=== PATIENT | male | born 1955 | race Two or more races ===

== ENCOUNTER 2021-06-10 10:38 | Inpatient (IN) | payer MEDICARE, OTHER ==
[~2021-06-10] VITALS: Ht 167.6 cm; Wt 144.4 kg
[2021-06-10] MEDS ORDERED: SODIUM CHLORIDE 0.9% 500 ML IV ONE (10:45)
[2021-06-10] MEDS ORDERED: CLINDAMYCIN 600MG IV 50 ML IV ONE (10:45)
[2021-06-10 12:10] LABS: Basophils # (auto) 0.2 10 ^3/uL (0-0.2); Basophils % (auto) 1.2 % (0.0-2.0); Eosinophils # (auto) 0.6 10 ^3/uL (0-0.8); Eosinophils % (auto) 3.2 % (0.0-7.0); Hematocrit 49.9 % (41.0-53.0); Hemoglobin 17.2 g/dL (13.5-17.5); Lymphocytes # (auto) 2.7 10 ^3/uL (0.4-5.4); Lymphocytes % (auto) 13.4 % (10.0-50.0); Mean Corpuscular Hemoglobin 30.6 pg (28.0-32.0); Mean Corpuscular Hgb Conc. 34.4 g/dL (32.0-36.0); Monocytes % (auto) 9.8 % (0.0-12.0); Neutrophils # (auto) 14.5 10 ^3/uL (1.6-8.6); Neutrophils % (auto) 72.4 % (37.0-80.0); Nucleated Red Blood Cells % 0.2 %; Red Blood Cells 5.61 10^6/uL (4.5-5.90); Red Cell Distribution Width 13.8 % (11.8-14.3); White Blood Cell 20.1 10^3/uL (4.4-10.8)
[2021-06-10 12:16] LABS: Albumin 3.4 g/dL (3.4-5.0); Calcium 8.9 mg/dL (8.5-10.1); Potassium 3.6 mmol/L (3.5-5.1)
[2021-06-10 12:20] LABS: BUN/Creatinine Ratio 21.7; Bilirubin, Total 0.6 mg/dL (0.2-1.0); Total Protein 7.6 g/dL (6.4-8.2)
[2021-06-10] MEDS ORDERED: MORPHINE SULFATE INJECTION 2 MG/ML SYRG IV PRN ×2 (13:15→14:00)
[2021-06-10] MEDS ORDERED: NITROGLYCERIN 0.4 MG SL TAB SL PRN ×2 (13:15→14:00)
[2021-06-10] MEDS ORDERED: METOPROLOL SUCCINATE XL 50 MG TAB PO ONE (14:00)
[2021-06-10] MEDS ORDERED: ALUM & MAG HYDROX-SIMETH LIQ(MAALOX) 30 ML PO PRN (14:00)
[2021-06-10] MEDS ORDERED: FUROSEMIDE 100 MG/10ML VIAL IV ONE (14:00)
[2021-06-10] MEDS ORDERED: ENOXAPARIN SOD 40 MG/0.4 ML SYRINGE SC ONE (14:00)
[2021-06-10] MEDS ORDERED: METOCLOPRAMIDE HCL 5MG/ml INJ 2ml VIAL IV PRN (14:00)
[2021-06-10] MEDS ORDERED: CEFTRIAXONE SODIUM 2 GM in D5W 5% 50 ML IV ONE (14:00)
[2021-06-10] MEDS ORDERED: ACETAMINOPHEN 325 MG TAB PO PRN (14:00)
[2021-06-10] MEDS ORDERED: LORazepam 0.5 MG TAB PO PRN (14:00)
[2021-06-10] MEDS ORDERED: CLINDAMYCIN 900MG IV 50 ML IV ONE (14:00)
[2021-06-10] MEDS ORDERED: DOCUSATE SOD 100 MG CAP PO PRN (14:00)
[2021-06-10 17:20] LABS: Cholesterol 175 mg/dL (< 200); HDL Cholesterol 36 mg/dL (40-59); LDL Cholesterol 129 mg/dL (< 100); Triglycerides 137 mg/dL (< 150)
[2021-06-10] MEDS: GABAPENTIN 300 MG CAP PO SCH (22:00)
[2021-06-11] MEDS: GABAPENTIN 300 MG CAP PO SCH ×4 (00:23→21:59)
[2021-06-11] MEDS: ATORVASTATIN 20 MG TAB PO SCH ×2 (00:24→21:59)
[2021-06-11] MEDS: CLINDAMYCIN 900MG IV 50 ML IV SCH ×4 (00:58→22:00)
[2021-06-11] MEDS: POTASSIUM CHL 20 Meq TABLET PO SCH ×3 (00:58→21:59)
[2021-06-11] MEDS: MORPHINE SULFATE INJECTION 2 MG/ML SYRG IV PRN (01:16)
[2021-06-11] MEDS: HYDROcodone-ACET 5/325MG TAB PO PRN ×2 (01:16→10:38)
[2021-06-11] MEDS: FUROSEMIDE 40 MG/4 ML VIAL IV SCH ×2 (03:04→14:09)
[2021-06-11 05:14] LABS: Basophils # (auto) 0.1 10 ^3/uL (0-0.2); Basophils % (auto) 0.8 % (0.0-2.0); Eosinophils # (auto) 0.2 10 ^3/uL (0-0.8); Eosinophils % (auto) 0.9 % (0.0-7.0); Hematocrit 49.5 % (41.0-53.0); Hemoglobin 16.9 g/dL (13.5-17.5); Lymphocytes # (auto) 1.5 10 ^3/uL (0.4-5.4); Lymphocytes % (auto) 7.6 % (10.0-50.0); Mean Corpuscular Hemoglobin 29.9 pg (28.0-32.0); Mean Corpuscular Hgb Conc. 34.2 g/dL (32.0-36.0); Mean Corpuscular Volume 87.4 fL (80.0-100.0); Monocytes # (auto) 2.2 10 ^3/uL (0-1.3); Monocytes % (auto) 11.4 % (0.0-12.0); Neutrophils # (auto) 15.2 10 ^3/uL (1.6-8.6); Neutrophils % (auto) 79.3 % (37.0-80.0); Nucleated Red Blood Cells % 0.1 %; Red Blood Cells 5.66 10^6/uL (4.5-5.90); Red Cell Distribution Width 13.3 % (11.8-14.3); White Blood Cell 19.2 10^3/uL (4.4-10.8)
[2021-06-11 05:28] LABS: Potassium 3.2 mmol/L (3.5-5.1)
[2021-06-11 05:35] LABS: Albumin 3.3 g/dL (3.4-5.0); BUN/Creatinine Ratio 17.2; Calcium 8.6 mg/dL (8.5-10.1); Phosphorus 2.9 mg/dL (2.5-4.90); Total Protein 7.5 g/dL (6.4-8.2); Uric Acid 7.2 mg/dL (3.5-7.2)
[2021-06-11 05:41] LABS: INR 1.1 (0.9-1.15); Partial Thromboplastin Time 28.2 sec (23.6-33.0)
[2021-06-11] MEDS: ENOXAPARIN SOD 40 MG/0.4 ML SYRINGE SC SCH (10:15)
[2021-06-11] MEDS: CYANOCOBALAMIN 500 MCG TAB PO SCH (10:16)
[2021-06-11] MEDS: METOPROLOL SUCCINATE XL 50 MG TAB PO SCH (10:27)
[2021-06-11] MEDS: LOSARTAN POTASSIUM 25 MG TAB PO SCH (10:28)
[2021-06-11] MEDS: ASPirin 81 mg TAB PO SCH (10:29)
[2021-06-11] MEDS: CEFTRIAXONE SODIUM 2 GM in D5W 5% 50 ML IV SCH (10:29)
[2021-06-11] MEDS: ALLOPURINOL 100 MG TAB PO SCH (10:30)
[2021-06-11] MEDS ORDERED: POTASSIUM CHLORIDE 40 MEQ, LIDOCAINE 1% (LOCAL ANESTH.) 4 ML in SODIUM CHL 0.9% 250 ML IV ONE (13:15)
[2021-06-11 18:22] VITALS: BP 150/93
[2021-06-11 21:58] VITALS: BP 152/84
[2021-06-12] MEDS: FUROSEMIDE 40 MG/4 ML VIAL IV SCH ×2 (02:27→13:49)
[2021-06-12 05:06] VITALS: BP 101/68
[2021-06-12] MEDS: GABAPENTIN 300 MG CAP PO SCH ×3 (05:31→22:43)
[2021-06-12] MEDS: CLINDAMYCIN 900MG IV 50 ML IV SCH ×3 (05:31→22:42)
[2021-06-12 05:52] LABS: Basophils # (auto) 0.2 10 ^3/uL (0-0.2); Basophils % (auto) 1.5 % (0.0-2.0); Eosinophils # (auto) 0.5 10 ^3/uL (0-0.8); Eosinophils % (auto) 3.1 % (0.0-7.0); Hematocrit 48.2 % (41.0-53.0); Lymphocytes # (auto) 2.5 10 ^3/uL (0.4-5.4); Lymphocytes % (auto) 15.1 % (10.0-50.0); Mean Corpuscular Hgb Conc. 33.2 g/dL (32.0-36.0); Mean Corpuscular Volume 90.1 fL (80.0-100.0); Monocytes # (auto) 2.1 10 ^3/uL (0-1.3); Monocytes % (auto) 13.1 % (0.0-12.0); Neutrophils % (auto) 67.2 % (37.0-80.0); Nucleated Red Blood Cells % 0.1 %; Red Blood Cells 5.35 10^6/uL (4.5-5.90); Red Cell Distribution Width 13.8 % (11.8-14.3); White Blood Cell 16.3 10^3/uL (4.4-10.8)
[2021-06-12 06:13] LABS: Albumin 2.9 g/dL (3.4-5.0); BUN/Creatinine Ratio 26.9; Calcium 8.3 mg/dL (8.5-10.1); Magnesium 2.3 mg/dL (1.6-2.6)
[2021-06-12 06:16] LABS: Bilirubin, Total 0.8 mg/dL (0.2-1.0); Phosphorus 3.3 mg/dL (2.5-4.90); Total Protein 6.4 g/dL (6.4-8.2)
[2021-06-12 06:20] LABS: INR 2.07 (0.9-1.15); Partial Thromboplastin Time 47.3 sec (23.6-33.0)
[2021-06-12 08:00] VITALS: BP 112/62
[2021-06-12] MEDS: CEFTRIAXONE SODIUM 2 GM in D5W 5% 50 ML IV SCH (08:50)
[2021-06-12] MEDS: ASPirin 81 mg TAB PO SCH (08:50)
[2021-06-12] MEDS: LOSARTAN POTASSIUM 25 MG TAB PO SCH (08:50)
[2021-06-12] MEDS: METOPROLOL SUCCINATE XL 50 MG TAB PO SCH (08:51)
[2021-06-12] MEDS: POTASSIUM CHL 20 Meq TABLET PO SCH ×2 (08:51→22:42)
[2021-06-12] MEDS: CYANOCOBALAMIN 500 MCG TAB PO SCH (08:52)
[2021-06-12] MEDS: CHOLECALCIFEROL (VITD3) 2,000 UNIT CAP/TAB PO SCH (08:52)
[2021-06-12] MEDS: ALLOPURINOL 100 MG TAB PO SCH (08:53)
[2021-06-12] MEDS: ENOXAPARIN SOD 40 MG/0.4 ML SYRINGE SC SCH (08:53)
[2021-06-12] MEDS: MORPHINE SULFATE INJECTION 2 MG/ML SYRG IV PRN ×2 (08:54→13:50)
[2021-06-12] MEDS: HYDROcodone-ACET 5/325MG TAB PO PRN ×2 (10:29→22:43)
[2021-06-12 12:00] VITALS: BP 158/111
[2021-06-12 16:00] VITALS: BP 138/74
[2021-06-12 22:02] VITALS: BP 138/78
[2021-06-12] MEDS: ATORVASTATIN 20 MG TAB PO SCH (22:42)
[2021-06-13] MEDS: FUROSEMIDE 40 MG/4 ML VIAL IV SCH ×2 (03:29→14:07)
[2021-06-13 04:50] VITALS: BP 158/84
[2021-06-13] MEDS: CLINDAMYCIN 900MG IV 50 ML IV SCH ×3 (05:46→21:21)
[2021-06-13] MEDS: GABAPENTIN 300 MG CAP PO SCH ×3 (05:47→21:22)
[2021-06-13 05:55] LABS: Basophils # (auto) 0.1 10 ^3/uL (0-0.2); Basophils % (auto) 0.9 % (0.0-2.0); Eosinophils # (auto) 0.5 10 ^3/uL (0-0.8); Eosinophils % (auto) 3.4 % (0.0-7.0); Hematocrit 43.7 % (41.0-53.0); Hemoglobin 15.3 g/dL (13.5-17.5); Lymphocytes % (auto) 12.9 % (10.0-50.0); Mean Corpuscular Hemoglobin 30.9 pg (28.0-32.0); Mean Corpuscular Volume 88.3 fL (80.0-100.0); Monocytes # (auto) 1.9 10 ^3/uL (0-1.3); Monocytes % (auto) 12.6 % (0.0-12.0); Neutrophils # (auto) 10.6 10 ^3/uL (1.6-8.6); Neutrophils % (auto) 70.2 % (37.0-80.0); Nucleated Red Blood Cells % 0.1 %; Red Blood Cells 4.95 10^6/uL (4.5-5.90); Red Cell Distribution Width 13.6 % (11.8-14.3); White Blood Cell 15.1 10^3/uL (4.4-10.8)
[2021-06-13 06:11] LABS: INR 1.07 (0.9-1.15); Partial Thromboplastin Time 28.9 sec (23.6-33.0)
[2021-06-13 06:23] LABS: Calcium 8.3 mg/dL (8.5-10.1); Potassium 3.6 mmol/L (3.5-5.1)
[2021-06-13 06:25] LABS: BUN/Creatinine Ratio 27.8; Magnesium 2.3 mg/dL (1.6-2.6)
[2021-06-13 06:28] LABS: Bilirubin, Total 0.7 mg/dL (0.2-1.0); Total Protein 6.3 g/dL (6.4-8.2)
[2021-06-13 08:00] VITALS: BP 134/80
[2021-06-13] MEDS: CHOLECALCIFEROL (VITD3) 2,000 UNIT CAP/TAB PO SCH (10:05)
[2021-06-13] MEDS: CEFTRIAXONE SODIUM 2 GM in D5W 5% 50 ML IV SCH (10:05)
[2021-06-13] MEDS: CYANOCOBALAMIN 500 MCG TAB PO SCH (10:06)
[2021-06-13] MEDS: ASPirin 81 mg TAB PO SCH (10:06)
[2021-06-13] MEDS: LOSARTAN POTASSIUM 25 MG TAB PO SCH (10:07)
[2021-06-13] MEDS: POTASSIUM CHL 20 Meq TABLET PO SCH ×2 (10:07→21:21)
[2021-06-13] MEDS: ENOXAPARIN SOD 40 MG/0.4 ML SYRINGE SC SCH (10:08)
[2021-06-13] MEDS: METOPROLOL SUCCINATE XL 50 MG TAB PO SCH (10:08)
[2021-06-13] MEDS: ALLOPURINOL 100 MG TAB PO SCH (10:08)
[2021-06-13] MEDS: MORPHINE SULFATE INJECTION 2 MG/ML SYRG IV PRN ×2 (10:09→21:02)
[2021-06-13 12:00] VITALS: BP 140/77
[2021-06-13 16:00] VITALS: BP_SYST 108; BP_SYST 147; BP_DIAS 68; BP_DIAS 81
[2021-06-13] MEDS: ATORVASTATIN 20 MG TAB PO SCH (21:21)
[2021-06-13 22:00] VITALS: BP 95/50
[2021-06-14] MEDS: HYDROcodone-ACET 5/325MG TAB PO PRN ×3 (01:26→21:26)
[2021-06-14] MEDS: FUROSEMIDE 40 MG/4 ML VIAL IV SCH ×2 (01:26→14:11)
[2021-06-14 05:00] VITALS: BP 134/85
[2021-06-14] MEDS: GABAPENTIN 300 MG CAP PO SCH ×3 (05:45→21:25)
[2021-06-14] MEDS: CLINDAMYCIN 900MG IV 50 ML IV SCH (05:45)
[2021-06-14 09:00] VITALS: BP 135/82
[2021-06-14] MEDS: ALLOPURINOL 100 MG TAB PO SCH (09:02)
[2021-06-14] MEDS: CYANOCOBALAMIN 500 MCG TAB PO SCH (09:02)
[2021-06-14] MEDS: CHOLECALCIFEROL (VITD3) 2,000 UNIT CAP/TAB PO SCH (09:02)
[2021-06-14] MEDS: ASPirin 81 mg TAB PO SCH (09:02)
[2021-06-14] MEDS: LOSARTAN POTASSIUM 25 MG TAB PO SCH (09:02)
[2021-06-14] MEDS: POTASSIUM CHL 20 Meq TABLET PO SCH ×2 (09:02→21:24)
[2021-06-14] MEDS: METOPROLOL SUCCINATE XL 50 MG TAB PO SCH (09:03)
[2021-06-14] MEDS: ENOXAPARIN SOD 40 MG/0.4 ML SYRINGE SC SCH (09:03)
[2021-06-14] MEDS: MORPHINE SULFATE INJECTION 2 MG/ML SYRG IV PRN ×2 (09:04→16:13)
[2021-06-14] MEDS: CEFTRIAXONE SODIUM 2 GM in D5W 5% 50 ML IV SCH (09:13)
[2021-06-14] MEDS ORDERED: VANCOMYCIN PER PHARMACY 0 MG IV SCH (10:15)
[2021-06-14] MEDS: VANCOMYCIN 1GM/250ML 250 ML IV SCH ×2 (11:35→21:24)
[2021-06-14 13:30] VITALS: BP 156/79
[2021-06-14 15:30] VITALS: BP 135/87
[2021-06-14] MEDS ORDERED: levoFLOXacin 750MG 150 ML IV ONE (15:30)
[2021-06-14] MEDS ORDERED: MORPHINE SULFATE INJECTION 2 MG/ML SYRG IV ONE (17:15)
[2021-06-14] MEDS: ATORVASTATIN 20 MG TAB PO SCH (21:25)
[2021-06-15 00:28] VITALS: BP 150/83
[2021-06-15] MEDS: FUROSEMIDE 40 MG/4 ML VIAL IV SCH ×2 (02:38→13:34)
[2021-06-15] MEDS: VANCOMYCIN 1GM/250ML 250 ML IV SCH ×3 (04:04→20:03)
[2021-06-15 05:00] VITALS: BP 137/72
[2021-06-15] MEDS: HYDROcodone-ACET 5/325MG TAB PO PRN (05:00)
[2021-06-15] MEDS: GABAPENTIN 300 MG CAP PO SCH ×3 (05:40→22:38)
[2021-06-15 07:50] LABS: Basophils # (auto) 0.1 10 ^3/uL (0-0.2); Basophils % (auto) 0.8 % (0.0-2.0); Eosinophils # (auto) 0.7 10 ^3/uL (0-0.8); Eosinophils % (auto) 5.1 % (0.0-7.0); Hematocrit 45.2 % (41.0-53.0); Hemoglobin 15.1 g/dL (13.5-17.5); Lymphocytes # (auto) 1.6 10 ^3/uL (0.4-5.4); Lymphocytes % (auto) 11.3 % (10.0-50.0); Mean Corpuscular Hemoglobin 29.5 pg (28.0-32.0); Mean Corpuscular Hgb Conc. 33.3 g/dL (32.0-36.0); Mean Corpuscular Volume 88.5 fL (80.0-100.0); Monocytes # (auto) 1.6 10 ^3/uL (0-1.3); Neutrophils # (auto) 10.3 10 ^3/uL (1.6-8.6); Neutrophils % (auto) 71.8 % (37.0-80.0); Red Cell Distribution Width 13.2 % (11.8-14.3); White Blood Cell 14.4 10^3/uL (4.4-10.8)
[2021-06-15 08:06] LABS: Calcium 8.5 mg/dL (8.5-10.1); Potassium 3.7 mmol/L (3.5-5.1)
[2021-06-15] MEDS: MORPHINE SULFATE INJECTION 2 MG/ML SYRG IV PRN ×2 (08:36→20:10)
[2021-06-15 09:00] VITALS: BP_SYST 114; BP_SYST 115; BP_DIAS 70; BP_DIAS 76
[2021-06-15] MEDS: ASPirin 81 mg TAB PO SCH (10:06)
[2021-06-15] MEDS: ENOXAPARIN SOD 40 MG/0.4 ML SYRINGE SC SCH (10:06)
[2021-06-15] MEDS: METOPROLOL SUCCINATE XL 50 MG TAB PO SCH (10:06)
[2021-06-15] MEDS: CHOLECALCIFEROL (VITD3) 2,000 UNIT CAP/TAB PO SCH (10:07)
[2021-06-15] MEDS: CYANOCOBALAMIN 500 MCG TAB PO SCH (10:07)
[2021-06-15] MEDS: ALLOPURINOL 100 MG TAB PO SCH (10:07)
[2021-06-15] MEDS: POTASSIUM CHL 20 Meq TABLET PO SCH (10:07)
[2021-06-15] MEDS: LOSARTAN POTASSIUM 25 MG TAB PO SCH (10:07)
[2021-06-15] MEDS: levoFLOXacin 750MG 150 ML IV SCH (10:08)
[2021-06-15 13:00] VITALS: BP 138/73
[2021-06-15 16:55] VITALS: BP 120/67
[2021-06-15 22:00] VITALS: BP 136/71
[2021-06-15] MEDS: ATORVASTATIN 20 MG TAB PO SCH (22:38)
[2021-06-16] MEDS: FUROSEMIDE 40 MG/4 ML VIAL IV SCH (02:15)
[2021-06-16] MEDS: VANCOMYCIN 1GM/250ML 250 ML IV SCH (04:00)
[2021-06-16 05:00] VITALS: BP 115/67
[2021-06-16] MEDS: MORPHINE SULFATE INJECTION 2 MG/ML SYRG IV PRN (05:50)
[2021-06-16] MEDS: GABAPENTIN 300 MG CAP PO SCH (06:00)
[2021-06-16 08:56] VITALS: BP 149/75
[2021-06-16] MEDS: ASPirin 81 mg TAB PO SCH (11:09)
[2021-06-16] MEDS: levoFLOXacin 750MG 150 ML IV SCH (11:09)
[2021-06-16] MEDS: LOSARTAN POTASSIUM 25 MG TAB PO SCH (11:10)
[2021-06-16] MEDS: CYANOCOBALAMIN 500 MCG TAB PO SCH (11:11)
[2021-06-16] MEDS: METOPROLOL SUCCINATE XL 50 MG TAB PO SCH (11:11)
[2021-06-16] MEDS: ALLOPURINOL 100 MG TAB PO SCH (11:12)
[2021-06-16] MEDS: CHOLECALCIFEROL (VITD3) 2,000 UNIT CAP/TAB PO SCH (11:12)
[2021-06-16] MEDS: ENOXAPARIN SOD 40 MG/0.4 ML SYRINGE SC SCH (11:12)
[2021-06-16] MEDS: HYDROcodone-ACET 5/325MG TAB PO PRN (11:16)
[2021-06-16 12:14] VITALS: BP 149/75
[2021-06-16 12:34] VITALS: BP 150/90
== END 2021-06-16 13:20 | disposition home health service (06) | DRG 602 ==
LOC: ER 10:38 → TELE 13:05 → TELE-WESTW 06-11 17:33 → WEST WING 06-12 14:07
PROVIDERS: ADMIT Hospitalist; ATTEND Family Medicine
DX: L03.115 Cellulitis of right lower limb (principal); I50.33 Acute on chronic diastolic (congestive) heart failure; L97.809 Non-pressure chronic ulcer of other part of unspecified lower leg with unspecified severity; L97.929 Non-pressure chronic ulcer of unspecified part of left lower leg with unspecified severity; Z68.43 Body mass index [BMI] 50.0-59.9, adult; L97.919 Non-pressure chronic ulcer of unspecified part of right lower leg with unspecified severity; L03.116 Cellulitis of left lower limb; I87.8 Other specified disorders of veins; E66.01 Morbid (severe) obesity due to excess calories; M10.9 Gout, unspecified; G62.9 Polyneuropathy, unspecified; L30.9 Dermatitis, unspecified; I87.2 Venous insufficiency (chronic) (peripheral); E78.5 Hyperlipidemia, unspecified; I11.0 Hypertensive heart disease with heart failure; E78.00 Pure hypercholesterolemia, unspecified; Z80.9 Family history of malignant neoplasm, unspecified; Z82.3 Family history of stroke; Z82.49 Family history of ischemic heart disease and other diseases of the circulatory system
CPT/HCPCS: 36415; 80048; 80053; 80061; 80202; 82306; 83036; 83735; 83880; 84100; 84443; 84484; 84550; 85025; 85610; 85652; 85730; 87040; 87077; 87186; 87205; 87426; 93306; 93925; 93970; 96372; 96374; G0378; J0696; J1956; J2001; J3490; J7060

== ENCOUNTER 2022-10-17 11:04 | Inpatient (IN) | payer MEDICARE, OTHER ==
[~2022-10-17] VITALS: Ht 170.2 cm; Wt 142.1 kg
[2022-10-17 12:28] LABS: Basophils # (auto) 0.1 10 ^3/uL (0-0.2); Basophils % (auto) 1.1 % (0.0-2.0); Eosinophils # (auto) 0.6 10 ^3/uL (0-0.8); Eosinophils % (auto) 4.2 % (0.0-7.0); Hematocrit 41.4 % (41.0-53.0); Hemoglobin 14.1 g/dL (13.5-17.5); Mean Corpuscular Hemoglobin 29.2 pg (28.0-32.0); Mean Corpuscular Hgb Conc. 34.1 g/dL (32.0-36.0); Mean Corpuscular Volume 85.7 fL (80.0-100.0); Monocytes # (auto) 1.4 10 ^3/uL (0-1.3); Monocytes % (auto) 10.5 % (0.0-12.0); Neutrophils # (auto) 9.2 10 ^3/uL (1.6-8.6); Neutrophils % (auto) 69.2 % (37.0-80.0); Nucleated Red Blood Cells % 0.1 %; Red Blood Cells 4.83 10^6/uL (4.5-5.90); Red Cell Distribution Width 13.7 % (11.8-14.3); White Blood Cell 13.3 10^3/uL (4.4-10.8)
[2022-10-17 12:58] LABS: Albumin 3.2 g/dL (3.4-5.0); CRP High Sensitivity 1.98 mg/dL (< 0.3); Calcium 8.6 mg/dL (8.5-10.1); Potassium 3.3 mmol/L (3.5-5.1); Total Protein 6.6 g/dL (6.4-8.2)
[2022-10-17] MEDS ORDERED: VANCOMYCIN 1GM/250ML 250 ML IV ONE (16:45)
[2022-10-17] MEDS ORDERED: POTASSIUM CHL 20 Meq TABLET PO ONE (21:00)
[2022-10-17] MEDS ORDERED: HYDROcodone-ACET 5/325MG TAB PO PRN (21:00)
[2022-10-17] MEDS ORDERED: ACETAMINOPHEN 325 MG TAB PO PRN (21:00)
[2022-10-17] MEDS ORDERED: ONDANSETRON HCL 4 MG/2 ML VIAL IV PRN (21:00)
[2022-10-17 21:47] LABS: INR 1.07 (0.9-1.15); Partial Thromboplastin Time 28.2 sec (24.6-33.4)
[2022-10-17] MEDS ORDERED: TEMAZEPAM 15 MG CAP PO PRN (22:00)
[2022-10-17] MEDS: cefTRIAXone 1GM/50ML D5W 50 ML IV SCH (23:24)
[2022-10-17] MEDS: ATORVASTATIN 20 MG TAB PO SCH (23:24)
[2022-10-17] MEDS: CARVEDILOL 3.125 MG TAB PO SCH (23:25)
[2022-10-18] VITALS (8 sets, daily range): BP systolic 120–162; BP diastolic 71–100
[2022-10-18] MEDS: CLINDAMYCIN 600MG IV 50 ML IV SCH ×2 (01:05→06:00)
[2022-10-18] MEDS ORDERED: ALL100T PO (04:52)
[2022-10-18] MEDS ORDERED: AZIL40TA2 PO (04:52)
[2022-10-18] MEDS ORDERED: CLON0.1T PO (04:52)
[2022-10-18] MEDS ORDERED: ATOR10TA52 PO (04:52)
[2022-10-18] MEDS ORDERED: CARV6.25 PO (04:52)
[2022-10-18 07:54] LABS: Basophils # (auto) 0.2 10 ^3/uL (0-0.2); Basophils % (auto) 1.2 % (0.0-2.0); Eosinophils # (auto) 0.5 10 ^3/uL (0-0.8); Eosinophils % (auto) 3.5 % (0.0-7.0); Hematocrit 39.5 % (41.0-53.0); Hemoglobin 13.3 g/dL (13.5-17.5); Lymphocytes # (auto) 2.1 10 ^3/uL (0.4-5.4); Lymphocytes % (auto) 15.1 % (10.0-50.0); Mean Corpuscular Hgb Conc. 33.7 g/dL (32.0-36.0); Mean Corpuscular Volume 86.1 fL (80.0-100.0); Monocytes # (auto) 1.7 10 ^3/uL (0-1.3); Monocytes % (auto) 12.2 % (0.0-12.0); Neutrophils # (auto) 9.4 10 ^3/uL (1.6-8.6); Red Blood Cells 4.59 10^6/uL (4.5-5.90); Red Cell Distribution Width 13.7 % (11.8-14.3); White Blood Cell 13.8 10^3/uL (4.4-10.8)
[2022-10-18 08:15] LABS: Albumin 2.8 g/dL (3.4-5.0); BUN/Creatinine Ratio 13.6; Bilirubin, Total 1.1 mg/dL (0.2-1.0); Calcium 8.3 mg/dL (8.5-10.1); Potassium 3.2 mmol/L (3.5-5.1); Total Protein 6.7 g/dL (6.4-8.2)
[2022-10-18] MEDS: cefTRIAXone 1GM/50ML D5W 50 ML IV SCH (08:59)
[2022-10-18] MEDS: CARVEDILOL 3.125 MG TAB PO SCH ×2 (09:59→21:52)
[2022-10-18] MEDS: ALLOPURINOL 100 MG TAB PO SCH (09:59)
[2022-10-18] MEDS: PANTOPRAZOLE 40 MG TAB PO SCH (09:59)
[2022-10-18] MEDS ORDERED: FUROSEMIDE 40 MG TAB PO SCH (10:00)
[2022-10-18] MEDS ORDERED: FUROSEMIDE 20 MG/2 ML VIAL IV ONE (10:15)
[2022-10-18] MEDS ORDERED: POTASSIUM CHL 20 Meq TABLET PO ONE (10:15)
[2022-10-18 21:07] LABS: Urine Bacteria NONE SEEN /hpf (None Seen); Urine Blood Negative /uL (Negative); Urine Specific Gravity 1.019 (1.001-1.035); Urine WBC <1 /hpf (0 - 3)
[2022-10-18] MEDS: CLINDAMYCIN 300MG IV 100 ML IV SCH (21:44)
[2022-10-18] MEDS: ATORVASTATIN 20 MG TAB PO SCH (21:45)
[2022-10-19] VITALS (7 sets, daily range): BP systolic 129–148; BP diastolic 63–93
[2022-10-19] MEDS: CLINDAMYCIN 300MG IV 100 ML IV SCH ×3 (05:42→22:04)
[2022-10-19 08:28] LABS: Basophils # (auto) 0.1 10 ^3/uL (0-0.2); Basophils % (auto) 0.9 % (0.0-2.0); Eosinophils # (auto) 0.6 10 ^3/uL (0-0.8); Eosinophils % (auto) 4.6 % (0.0-7.0); Hematocrit 41.7 % (41.0-53.0); Hemoglobin 14.2 g/dL (13.5-17.5); Lymphocytes # (auto) 2.3 10 ^3/uL (0.4-5.4); Lymphocytes % (auto) 17.5 % (10.0-50.0); Mean Corpuscular Hemoglobin 29.1 pg (28.0-32.0); Mean Corpuscular Hgb Conc. 34.1 g/dL (32.0-36.0); Mean Corpuscular Volume 85.4 fL (80.0-100.0); Monocytes # (auto) 1.4 10 ^3/uL (0-1.3); Monocytes % (auto) 10.9 % (0.0-12.0); Neutrophils # (auto) 8.6 10 ^3/uL (1.6-8.6); Neutrophils % (auto) 66.1 % (37.0-80.0); Nucleated Red Blood Cells % 0.3 %; Red Blood Cells 4.88 10^6/uL (4.5-5.90); Red Cell Distribution Width 13.3 % (11.8-14.3)
[2022-10-19 08:42] LABS: Calcium 8.6 mg/dL (8.5-10.1); Potassium 3.2 mmol/L (3.5-5.1)
[2022-10-19] MEDS: cefTRIAXone 1GM/50ML D5W 50 ML IV SCH (09:35)
[2022-10-19] MEDS: CARVEDILOL 3.125 MG TAB PO SCH ×2 (09:36→22:09)
[2022-10-19] MEDS: POTASSIUM CHL 20 Meq TABLET PO SCH (09:37)
[2022-10-19] MEDS: PANTOPRAZOLE 40 MG TAB PO SCH (09:37)
[2022-10-19] MEDS: ALLOPURINOL 100 MG TAB PO SCH (09:37)
[2022-10-19] MEDS ORDERED: FUROSEMIDE 20 MG/2 ML VIAL IV SCH (10:00)
[2022-10-19] MEDS ORDERED: FUROSEMIDE 20 MG/2 ML VIAL IV ONE (10:15)
[2022-10-19] MEDS ORDERED: POTASSIUM CHL 20 Meq TABLET PO ONE (10:15)
[2022-10-19] MEDS ORDERED: CLINDAMYCIN 600MG IV 50 ML IV SCH (14:00)
[2022-10-19] MEDS: ATORVASTATIN 20 MG TAB PO SCH (22:05)
[2022-10-20 05:21] VITALS: BP 122/72
[2022-10-20 06:47] LABS: Potassium 3.3 mmol/L (3.5-5.1)
[2022-10-20 07:00] LABS: Basophils # (auto) 0.1 10 ^3/uL (0-0.2); Basophils % (auto) 0.7 % (0.0-2.0); Eosinophils # (auto) 0.6 10 ^3/uL (0-0.8); Eosinophils % (auto) 5.3 % (0.0-7.0); Hematocrit 47.6 % (41.0-53.0); Hemoglobin 16.1 g/dL (13.5-17.5); Lymphocytes # (auto) 2.3 10 ^3/uL (0.4-5.4); Lymphocytes % (auto) 20.5 % (10.0-50.0); Mean Corpuscular Hemoglobin 29.1 pg (28.0-32.0); Mean Corpuscular Hgb Conc. 33.8 g/dL (32.0-36.0); Mean Corpuscular Volume 85.9 fL (80.0-100.0); Monocytes # (auto) 1.3 10 ^3/uL (0-1.3); Monocytes % (auto) 11.9 % (0.0-12.0); Neutrophils % (auto) 61.6 % (37.0-80.0); Nucleated Red Blood Cells % 0.1 %; Red Blood Cells 5.55 10^6/uL (4.5-5.90); Red Cell Distribution Width 13.6 % (11.8-14.3); White Blood Cell 11.3 10^3/uL (4.4-10.8)
[2022-10-20] MEDS: CLINDAMYCIN 300MG IV 100 ML IV SCH ×3 (07:03→21:35)
[2022-10-20 07:07] LABS: BUN/Creatinine Ratio 14.6; Calcium 8.9 mg/dL (8.5-10.1)
[2022-10-20 09:00] VITALS: BP 144/49
[2022-10-20] MEDS: cefTRIAXone 1GM/50ML D5W 50 ML IV SCH (09:18)
[2022-10-20] MEDS ORDERED: POTASSIUM CHL 20 Meq TABLET PO ONE (10:00)
[2022-10-20] MEDS: POTASSIUM CHL 20 Meq TABLET PO SCH (10:00)
[2022-10-20] MEDS: PANTOPRAZOLE 40 MG TAB PO SCH (11:18)
[2022-10-20] MEDS: ALLOPURINOL 100 MG TAB PO SCH (11:18)
[2022-10-20] MEDS: CARVEDILOL 3.125 MG TAB PO SCH ×2 (11:18→21:34)
[2022-10-20] MEDS: FUROSEMIDE 20 MG/2 ML VIAL IV SCH (11:22)
[2022-10-20 13:00] VITALS: BP_SYST 126; BP_SYST 139; BP_DIAS 79; BP_DIAS 85
[2022-10-20 17:00] VITALS: BP 147/78
[2022-10-20] MEDS: ATORVASTATIN 20 MG TAB PO SCH (21:34)
[2022-10-20 22:00] VITALS: BP 123/55
[2022-10-21 05:00] VITALS: BP 124/55
[2022-10-21] MEDS: CLINDAMYCIN 300MG IV 100 ML IV SCH ×3 (05:33→21:38)
[2022-10-21 06:15] LABS: Calcium 9.2 mg/dL (8.5-10.1); Potassium 3.1 mmol/L (3.5-5.1)
[2022-10-21 06:17] LABS: BUN/Creatinine Ratio 19.3
[2022-10-21 08:18] VITALS: BP 164/82
[2022-10-21] MEDS: cefTRIAXone 1GM/50ML D5W 50 ML IV SCH (08:50)
[2022-10-21] MEDS: FUROSEMIDE 20 MG/2 ML VIAL IV SCH (10:44)
[2022-10-21] MEDS: POTASSIUM CHL 20 Meq TABLET PO SCH (10:45)
[2022-10-21] MEDS: CARVEDILOL 3.125 MG TAB PO SCH ×2 (10:45→21:38)
[2022-10-21] MEDS: PANTOPRAZOLE 40 MG TAB PO SCH (10:46)
[2022-10-21] MEDS: ALLOPURINOL 100 MG TAB PO SCH (10:46)
[2022-10-21] MEDS ORDERED: POTASSIUM CHL 20 Meq TABLET PO ONE (11:15)
[2022-10-21 13:00] VITALS: BP 169/80
[2022-10-21 17:13] VITALS: BP 154/86
[2022-10-21] MEDS: ATORVASTATIN 20 MG TAB PO SCH (21:38)
[2022-10-21 22:00] VITALS: BP 149/92
[2022-10-22 05:00] VITALS: BP 155/85
[2022-10-22] MEDS: CLINDAMYCIN 300MG IV 100 ML IV SCH ×3 (05:28→21:27)
[2022-10-22 09:00] VITALS: BP 161/96
[2022-10-22] MEDS: cefTRIAXone 1GM/50ML D5W 50 ML IV SCH (09:29)
[2022-10-22] MEDS: CARVEDILOL 3.125 MG TAB PO SCH ×2 (10:44→21:27)
[2022-10-22] MEDS: FUROSEMIDE 20 MG/2 ML VIAL IV SCH (10:44)
[2022-10-22] MEDS: POTASSIUM CHL 20 Meq TABLET PO SCH (10:44)
[2022-10-22] MEDS: ALLOPURINOL 100 MG TAB PO SCH (10:45)
[2022-10-22] MEDS: PANTOPRAZOLE 40 MG TAB PO SCH (10:45)
[2022-10-22 13:00] VITALS: BP 150/95
[2022-10-22 17:00] VITALS: BP 162/75
[2022-10-22] MEDS ORDERED: hydrALAZINE HCL 20 MG/ML VL IV PRN (18:15)
[2022-10-22 20:00] VITALS: BP 126/58
[2022-10-22] MEDS: ATORVASTATIN 20 MG TAB PO SCH (21:27)
[2022-10-22 22:00] VITALS: BP 126/58
[2022-10-23 05:00] VITALS: BP 144/75
[2022-10-23] MEDS: CLINDAMYCIN 300MG IV 100 ML IV SCH ×2 (05:08→14:50)
[2022-10-23 08:54] VITALS: BP 104/72
[2022-10-23] MEDS: cefTRIAXone 1GM/50ML D5W 50 ML IV SCH (08:56)
[2022-10-23] MEDS: POTASSIUM CHL 20 Meq TABLET PO SCH (08:57)
[2022-10-23] MEDS: PANTOPRAZOLE 40 MG TAB PO SCH (08:57)
[2022-10-23] MEDS: FUROSEMIDE 20 MG/2 ML VIAL IV SCH (08:57)
[2022-10-23] MEDS: CARVEDILOL 3.125 MG TAB PO SCH (08:57)
[2022-10-23] MEDS: ALLOPURINOL 100 MG TAB PO SCH (08:57)
[2022-10-23 13:31] VITALS: BP 146/73
== END 2022-10-23 19:10 | DRG 871 ==
LOC: ER 11:04 → OVERFLOW 21:03 → CENTRAL 10-18 03:32
PROVIDERS: ADMIT Nurse Practitioner; ATTEND Internal Medicine
DX: A41.9 Sepsis, unspecified organism (principal); I50.43 Acute on chronic combined systolic (congestive) and diastolic (congestive) heart failure; L03.115 Cellulitis of right lower limb; L03.116 Cellulitis of left lower limb; Z68.43 Body mass index [BMI] 50.0-59.9, adult; E66.01 Morbid (severe) obesity due to excess calories; E87.6 Hypokalemia; E78.5 Hyperlipidemia, unspecified; I11.0 Hypertensive heart disease with heart failure; M10.9 Gout, unspecified; I89.0 Lymphedema, not elsewhere classified; Z20.822 Contact with and (suspected) exposure to COVID-19; I87.8 Other specified disorders of veins; G47.30 Sleep apnea, unspecified; Z80.9 Family history of malignant neoplasm, unspecified; Z82.3 Family history of stroke; Z82.49 Family history of ischemic heart disease and other diseases of the circulatory system
CPT/HCPCS: 36415; 71045; 73700; 80048; 80053; 81001; 83605; 83880; 84443; 84484; 84550; 85025; 85610; 85730; 86141; 87040; 87426; 93306; 93970; 97116; 97163; 97530; G0378; J0696; J3490

== ENCOUNTER 2024-05-14 08:45 | Inpatient (IN) | payer MEDICARE, OTHER ==
[~2024-05-14] VITALS: Ht 167.6 cm; Wt 154.3 kg
[~2024-05-14 08:45] MED LIST: ALL100T PO; ATOR10TA52 PO; CARV6.2517 PO; CLON0.1T PO
[2024-05-14] MEDS: CLINDAMYCIN 600MG IV 50 ML IV ONE (09:49)
[2024-05-14 09:50] VITALS: RESP 17; O2SAT 97
[2024-05-14 10:14] LABS: Basophils # (auto) 0.2 10 ^3/uL (0-0.2); Basophils % (auto) 1.3 % (0.0-2.0); Eosinophils # (auto) 0.5 10 ^3/uL (0-0.8); Eosinophils % (auto) 4.3 % (0.0-7.0); Hematocrit 46.3 % (41.0-53.0); Hemoglobin 15.6 g/dL (13.5-17.5); Lymphocytes # (auto) 2.1 10 ^3/uL (0.4-5.4); Lymphocytes % (auto) 16.5 % (10.0-50.0); Mean Corpuscular Hemoglobin 29.9 pg (28.0-32.0); Mean Corpuscular Hgb Conc. 33.7 g/dL (32.0-36.0); Mean Corpuscular Volume 88.7 fL (80.0-100.0); Monocytes # (auto) 1.1 10 ^3/uL (0-1.3); Monocytes % (auto) 8.9 % (0.0-12.0); Neutrophils # (auto) 8.8 10 ^3/uL (1.6-8.6); Platelet Count (auto) 306 10^3/uL (140-450); Red Blood Cells 5.22 10^6/uL (4.5-5.90); Red Cell Distribution Width 14.1 % (11.8-14.3); White Blood Cell 12.8 10^3/uL (4.4-10.8)
[2024-05-14 10:26] LABS: Chloride 108 mmol/L (98-107); Potassium 3.4 mmol/L (3.5-5.1); Sodium 144 mmol/L (136-145)
[2024-05-14 10:27] LABS: Anion Gap 6 (5-15); Carbon Dioxide 30 mmol/L (20-31)
[2024-05-14 10:32] LABS: BUN/Creatinine Ratio 15.9 (10.0-20.0); Blood Urea Nitrogen 14 mg/dL (9-23); Glucose 124 mg/dL (74-106)
[2024-05-14 11:11] LABS: Urine Bacteria None Seen /hpf (None Seen)
[2024-05-14 11:25] LABS: Erythrocyte Sedimentation Rate 22 mm/hr (0-20)
[2024-05-14 11:28] LABS: Urine Blood Negative /uL (Negative); Urine Clarity Clear (Clear); Urine Color Colorless (Yellow); Urine Protein, UAD Negative (Negative); Urine Specific Gravity 1.009 (1.001-1.035); Urine Urobilinogen Normal (Negative); Urine WBC <1 /hpf (0 - 3)
[2024-05-14] MEDS ORDERED: ONDANSETRON HCL 4 MG/2 ML VIAL IV PRN (13:30)
[2024-05-14] MEDS ORDERED: MORPHINE SULFATE INJ 2 MG/ml SYRG IV PRN (13:30)
[2024-05-14] MEDS: FUROSEMIDE 20 MG/2 ML VIAL IV SCH (14:15)
[2024-05-14] MEDS: hydrALAZINE HCL 20 MG/ML VL IV PRN (15:02)
[2024-05-14 15:29] VITALS: BP 183/97; PULSE 72; RESP 20; TEMP 97.4; O2SAT 98
[2024-05-14 17:00] VITALS: BP 185/93; PULSE 86; RESP 21; TEMP 98.1; O2SAT 97
[2024-05-14] MEDS: METOPROLOL TARTRATE 50 MG TAB PO SCH (17:26)
[2024-05-14] MEDS ORDERED: FURO1TAB31 PO (17:49)
[2024-05-14] MEDS ORDERED: POTA-36 PO (17:49)
[2024-05-14] MEDS ORDERED: CLON0.2D6 PO (17:49)
[2024-05-14] MEDS ORDERED: METO-158 PO (17:49)
[2024-05-14 20:00] VITALS: PULSE 72; RESP 19; O2SAT 96
[2024-05-14 21:10] VITALS: BP 174/85; PULSE 72; RESP 19; TEMP 98.1; O2SAT 96
[2024-05-14] MEDS: HYDROcodone-ACET 5/325MG TAB PO PRN (21:46)
[2024-05-14] MEDS: ATORVASTATIN 20 MG TAB PO SCH (21:47)
[2024-05-14] MEDS: CLINDAMYCIN 600MG IV 50 ML IV SCH (21:48)
[2024-05-15] VITALS (8 sets, daily range): BP systolic 137–189; BP diastolic 53–89; PULSE 65–80; RESP 16–20; TEMP 97.6–98; O2SAT 94–99
[2024-05-15 07:16] LABS: Basophils # (auto) 0.1 10 ^3/uL (0-0.2); Basophils % (auto) 0.8 % (0.0-2.0); Eosinophils # (auto) 0.7 10 ^3/uL (0-0.8); Eosinophils % (auto) 4.6 % (0.0-7.0); Hematocrit 47.2 % (41.0-53.0); Lymphocytes # (auto) 1.9 10 ^3/uL (0.4-5.4); Lymphocytes % (auto) 12.7 % (10.0-50.0); Mean Corpuscular Hemoglobin 30.3 pg (28.0-32.0); Mean Corpuscular Hgb Conc. 33.8 g/dL (32.0-36.0); Mean Corpuscular Volume 89.7 fL (80.0-100.0); Monocytes # (auto) 1.6 10 ^3/uL (0-1.3); Monocytes % (auto) 10.9 % (0.0-12.0); Neutrophils # (auto) 10.6 10 ^3/uL (1.6-8.6); Nucleated Red Blood Cells % 0.1 %; Platelet Count (auto) 296 10^3/uL (140-450); Red Blood Cells 5.27 10^6/uL (4.5-5.90); Red Cell Distribution Width 13.8 % (11.8-14.3); White Blood Cell 14.9 10^3/uL (4.4-10.8)
[2024-05-15 07:25] LABS: Anion Gap 6 (5-15); Calcium 9.9 mg/dL (8.7-10.4); Carbon Dioxide 28 mmol/L (20-31); Chloride 109 mmol/L (98-107); Potassium 3.6 mmol/L (3.5-5.1); Sodium 143 mmol/L (136-145)
[2024-05-15 07:31] LABS: BUN/Creatinine Ratio 13.3 (10.0-20.0); Blood Urea Nitrogen 11 mg/dL (9-23); Glucose 112 mg/dL (74-106)
[2024-05-15] MEDS: ALLOPURINOL 100 MG TAB PO SCH (08:22)
[2024-05-15] MEDS: POTASSIUM CHL 20 Meq TABLET PO SCH (08:23)
[2024-05-15 09:57] LABS: Triglycerides 123 mg/dL (< 150)
[2024-05-15 09:58] LABS: LDL Cholesterol 111 mg/dL (< 100)
[2024-05-15 09:59] LABS: Cholesterol 154 mg/dL (< 200); HDL Cholesterol 34 mg/dL (40-59)
[2024-05-15] MEDS ORDERED: VANCOMYCIN PER PHARMACY 0 MG IV SCH (10:15)
[2024-05-15 11:26] LABS: INR 1.08 (0.9-1.15); Partial Thromboplastin Time 28.5 SEC (24.5-34.5); Prothrombin Time 11.4 sec (9.3-11.8)
[2024-05-15] MEDS: cefTRIAXone 1GM/50ML D5W 50 ML IV ONE (12:55)
[2024-05-15] MEDS: NIFEdipine ER 30 MG TAB PO ONE (12:56)
[2024-05-15] MEDS: ERGOCALCIFEROL 50,000 UNIT(1.25MG) CAP PO SCH (12:56)
[2024-05-15] MEDS: VANCOMYCIN 1GM/250ML 250 ML IV SCH ×2 (16:51→17:00)
[2024-05-15] MEDS: VANCOMYCIN 1 GM/200 ML IV ONE (16:53)
[2024-05-15] MEDS: VANCOMYCIN 1GM/200ML PREMIX 200 ML IV ONE (17:22)
[2024-05-16 01:00] VITALS: BP 121/78; PULSE 76; RESP 19; TEMP 98.2; O2SAT 96
[2024-05-16 05:00] VITALS: BP 128/70; PULSE 65; RESP 19; TEMP 98.1; O2SAT 97
[2024-05-16] MEDS: VANCOMYCIN 1.5GM/300ML 300 ML IV SCH (05:00)
[2024-05-16 08:00] VITALS: PULSE 76; RESP 18; O2SAT 97
[2024-05-16] MEDS: cefTRIAXone 1GM/50ML D5W 50 ML IV SCH (08:46)
[2024-05-16] MEDS: NIFEdipine ER 30 MG TAB PO SCH (08:51)
[2024-05-16 08:56] VITALS: BP 141/72; PULSE 76; RESP 18; TEMP 97.5; O2SAT 97
[2024-05-16] MEDS ORDERED: NIFE1TAB31 PO (09:32)
[2024-05-16] MEDS ORDERED: ERGO1CAP23 PO (09:32)
[2024-05-16] MEDS ORDERED: BACDST PO (09:32)
[2024-05-16 11:52] VITALS: BP 141/72; PULSE 76; RESP 18; TEMP 97.5; O2SAT 97
[2024-05-16 13:00] VITALS: BP 137/76; PULSE 69; RESP 16; TEMP 97.8; O2SAT 98
== END 2024-05-16 12:55 | disposition home or self-care (01) | DRG 603 ==
LOC: ER 08:45 → OVERFLOW 13:19 → CENTRAL 15:41
PROVIDERS: ADMIT Internal Medicine; ATTEND Internal Medicine
DX: L03.115 Cellulitis of right lower limb (principal); L97.819 Non-pressure chronic ulcer of other part of right lower leg with unspecified severity; L97.929 Non-pressure chronic ulcer of unspecified part of left lower leg with unspecified severity; L03.116 Cellulitis of left lower limb; E78.5 Hyperlipidemia, unspecified; I10 Essential (primary) hypertension; E55.9 Vitamin D deficiency, unspecified; I87.2 Venous insufficiency (chronic) (peripheral); M10.9 Gout, unspecified; E11.622 Type 2 diabetes mellitus with other skin ulcer; Z82.49 Family history of ischemic heart disease and other diseases of the circulatory system; Z82.3 Family history of stroke
CPT/HCPCS: 36415; 80048; 80061; 81001; 82306; 82607; 83036; 83605; 84443; 85025; 85610; 85652; 85730; 87040; 87077; 87186; 87205; G0378; J3490

== ENCOUNTER 2025-02-17 10:48 | Outpatient (CLI) | payer MEDICARE, OTHER ==
[~2025-02-17 10:48] MED LIST changes: +BACDST PO; -CARV6.2517 PO; -CLON0.1T PO; +CLON0.2D6 PO; +ERGO1CAP23 PO; +FURO1TAB31 PO; +METO-158 PO; +NIFE1TAB31 PO; +POTA-36 PO
[2025-02-17 11:26] LABS: Urine Protein, UAD Negative (Negative)
[2025-02-17 11:35] LABS: Alanine Aminotransferase 18 U/L (7-40); Albumin 4.3 g/dL (3.2-4.8); Alkaline Phosphatase 87 U/L (46-116); Anion Gap 6 (5-15); BUN/Creatinine Ratio 13.6 (10.0-20.0); Bilirubin, Total 0.6 mg/dL (0.2-1.0); Blood Urea Nitrogen 11 mg/dL (9-23); Calcium 9.1 mg/dL (8.7-10.4); Glucose 106 mg/dL (74-106); Potassium 3.6 mmol/L (3.5-5.1); Total Protein 6.9 g/dL (5.7-8.2); Uric Acid 7.2 mg/dL (3.7-9.2)
[2025-02-17 11:36] LABS: Carbon Dioxide 31 mmol/L (20-31); Chloride 108 mmol/L (98-107); Sodium 145 mmol/L (136-145)
[2025-02-17 11:40] LABS: Hematocrit 46.4 % (41.0-53.0); Hemoglobin 15.6 g/dL (13.5-17.5); Mean Corpuscular Hemoglobin 29.0 pg (28.0-32.0); Mean Corpuscular Volume 86.2 fL (80.0-100.0); Nucleated Red Blood Cells % 0.2 %
[2025-02-17 11:49] LABS: Triglycerides 116 mg/dL (< 150)
[2025-02-17 11:51] LABS: Cholesterol 121 mg/dL (< 200)
[2025-02-17 11:52] LABS: HDL Cholesterol 26 mg/dL (40-59)
== END 2025-02-17 17:00 | disposition home or self-care (01) ==
LOC: LAB 10:48
PROVIDERS: ATTEND Nurse Practitioner
DX: I10 Essential (primary) hypertension (principal); E78.5 Hyperlipidemia, unspecified; M10.9 Gout, unspecified; Z79.899 Other long term (current) drug therapy
CPT/HCPCS: 36415; 80053; 80061; 81001; 83036; 84443; 84550; 85025

== ENCOUNTER 2025-07-05 18:19 | Inpatient (IN) | payer MEDICARE, OTHER ==
[~2025-07-05] VITALS: Ht 167.6 cm; Wt 155.1 kg
[2025-07-05 19:30] LABS: Hematocrit 48.7 % (41.0-53.0); Hemoglobin 16.6 g/dL (13.5-17.5); Mean Corpuscular Hemoglobin 29.7 pg (28.0-32.0); Mean Corpuscular Volume 87.2 fL (80.0-100.0); Nucleated Red Blood Cells % 0.2 %
[2025-07-05 19:46] LABS: Alanine Aminotransferase 31 U/L (7-40); Albumin 4.3 g/dL (3.2-4.8); Alkaline Phosphatase 98 U/L (46-116); Anion Gap 10 (5-15); BUN/Creatinine Ratio 13.3 (10.0-20.0); Blood Urea Nitrogen 12 mg/dL (9-23); Calcium 9.5 mg/dL (8.7-10.4); Carbon Dioxide 27 mmol/L (20-31); Chloride 110 mmol/L (98-107); Glucose 89 mg/dL (74-106); Potassium 3.0 mmol/L (3.5-5.1); Sodium 147 mmol/L (136-145); Total Protein 7.2 g/dL (5.7-8.2)
[2025-07-05 19:47] LABS: Bilirubin, Total 1.0 mg/dL (0.2-1.0)
--- NOTE | 2025-07-05 19:48 | DVH ---
CLINICAL INDICATION: wound / infection TECHNIQUE: 8 radiographic views of the left tibia and fibula were obtained. Comparison: None FINDINGS/IMPRESSION: There is no fracture or dislocation. No periosteal reaction. No gas in the soft tissues. Mass of the amounts of soft tissue consistent with corpulent body habitus. If osteomyelitis is of concern recommend MRI.
--- NOTE | 2025-07-05 20:21 | ED.PDOC ---
History of Present Illness HPI Comments 69-year-old, morbidly obese male presents with chief complaint of cyst to left, lower leg. Patient reports on history of chronic lymphedema to his bilateral lower extremities for over the past 3 years. He states on noticing cyst to his lateral, anterior side of his left leg, this morning. Denies any shortness the breath, chest pain, further acute symptoms. Chief Complaint: Lower Extremity Time Seen by MD: 18:55 Primary Care Provider: HILARY Reviewed Notes: Nurses Notes, Roll On Worker Notes, Medications, Allergies Allergies: Coded Allergies: NO KNOWN ALLERGIES (Unverified , 06/10/21) Home Meds Active Scripts Sulfamethoxazole W/Trimethopri (Bactrim Ds Tablet) 1 Tab Tb, 2 TAB PO BID for 7 Days, #28 TAB Prov:DIANA VIVAS RESIDENT 05/16/24 Nifedipine (Nifedipine Er) 30 Mg Tab, 30 MG PO DAILY for 30 Days, #30 TAB 2 Refills Prov:DIANA VIVAS RESIDENT 05/16/24 Ergocalciferol (VITAMIN D 51951 UNIT) 50,000 [place], [address] UNIT PO Q7D for 90 Days, #12 CAP Prov:DIANA VIVAS RESIDENT 05/16/24 Reported Medications Clonidine Hydrochloride (Clonidine Hcl) 0.2 Mg/24 Hr Dis, 0.2 MG PO Q6HPRN PRN for SBP>160 for 30 Days, MG 05/14/24 Potassium Chloride (POTASSIUM CHLORIDE CR) 10 Meq Tb, 1 TAB PO DAILY, #30 TAB 5 Refills 05/14/24 Metoprolol Tartrate (Metoprolol Tartrate) 50 Mg Tab, 50 MG PO BID for 30 Days, MG 05/14/24 Furosemide (Lasix) 40 Mg Tab, 40 MG PO, TAB 05/14/24 Allopurinol (ZYLOPRIM TABLET) 100 Mg Tb, 1 TAB PO DAILY, #30 TAB 5 Refills 10/18/22 Atorvastatin Calcium (ATORVASTATIN CALCIUM) 10 Mg Tab, 1 TAB PO DAILY 10/18/22 Information Source: Patient Mode of Arrival: Ambulatory Severity: Moderate Timing: Hours Duration: Since onset Prehospital treatment: None Past Medical History PAST MEDICAL HISTORY: Gout, High Lipids, HTN Past Medical History (Other): Chronic lymphedema Surgical History: Denies all surgeries Family History Family History: Family hx of Cancer, Family hx of HTN, Family hx of stroke Social History Smoker: Non-Smoker Alcohol: Denies ETOH Use Drugs: Denies Drug Use Lives In: Home All Other Systems: Reviewed and Negative (Comprehensive review of systems are negative unless otherwise stated in HPI) Physical Exam General Appearance: No Apparent Distress, Obese HEENT: Normal ENT Inspection, Pharynx Normal, TMs Normal Neck: Full Range of Motion, Non-Tender, Normal, Normal Inspection Respiratory: Chest Non-Tender, Lungs Clear, No Accessory Muscle Use, No Respiratory Distress, Normal Breath Sounds Cardiovascular: No Edema, No JVD, No Murmur, No Gallop, Normal Peripheral Pulses, Regular Rate/Rhythm Breast Exam: Deferred Gastrointestinal: No Organomegaly, Non Tender, No Pulsatile Mass, Normal Bowel Sounds, Soft Genitalia: Deferred Pelvic: Deferred Rectal: Deferred Extremities: Leg edema (stasis dermatitis to ble), No calf tenderness, Normal capillary refill, Normal range of motion, Non-tender, Swelling (stasis dermatitis to ble) Musculoskeletal : Apperance: Normal Neurologic: Alert, servicing manager II-XII nml as Tested, No Motor Deficits, Normal Affect, Normal Mood, No Sensory Deficits Cerebellar Function: Normal Reflexes: Normal Skin: Dry, Normal Color, Warm Lymphatic: No Adenopathy Was a procedure done? Was a procedure done?: No Differential Dx Considerations may include: Chronic lymphedema, stasis dermatitis, abscess, cyst, cellulitis, among others X-Ray, Labs, Meds, VS Vital Signs Date Time Temp Pulse Resp B/P (MAP) Pulse Ox O2 Delivery O2 Flow Rate FiO2 07/05/25 18:22 98.5 75 18 166/103 93 98.5 Lab Test 07/05/25 19:05 Range/Units White Blood Count 15.2 H 4.4-10.8 10^3/uL Red Blood Count 5.59 4.5-5.90 10^6/uL Hemoglobin 16.6 13.5-17.5 g/dL Hematocrit 48.7 41.0-53.0 % Mean Corpuscular Volume 87.2 80.0-100.0 fL Mean Corpuscular Hemoglobin 29.7 28.0-32.0 pg Mean Corpuscular Hemoglobin Concent 34.0 32.0-36.0 g/dL Red Cell Distribution Width 14.3 11.8-14.3 % Platelet Count 289 140-450 10^3/uL Mean Platelet Volume 6.9 6.9-10.8 fL Neutrophils (%) (Auto) 70.9 37.0-80.0 % Lymphocytes (%) (Auto) 15.2 10.0-50.0 % Monocytes (%) (Auto) 9.7 0.0-12.0 % Eosinophils (%) (Auto) 3.7 0.0-7.0 % Basophils (%) (Auto) 0.5 0.0-2.0 % Neutrophils # (Auto) 10.8 H 1.6-8.6 10 ^3/uL Lymphocytes # (Auto) 2.3 0.4-5.4 10 ^3/uL Monocytes # (Auto) 1.5 H 0-1.3 10 ^3/uL Eosinophils # (Auto) 0.6 0-0.8 10 ^3/uL Basophils # (Auto) 0.1 0-0.2 10 ^3/uL Nucleated Red Blood Cells 0.2 % Sodium Level 147 H 136-145 mmol/L Potassium Level 3.0 L 3.5-5.1 mmol/L Chloride Level 110 H 98-107 mmol/L Carbon Dioxide Level 27 20-31 mmol/L Anion Gap 10 5-15 Blood Urea Nitrogen 12 9-23 mg/dL Creatinine 0.90 0.700-1.30 mg/dL Glomerular Filtration Rate Calc 92 >90 mL/min BUN/Creatinine Ratio 13.3 10.0-20.0 Serum Glucose 89 74-106 mg/dL Lactic Acid Level 1.2 0.4-2.0 mmol/L Calcium Level 9.5 8.7-10.4 mg/dL Total Bilirubin 1.0 0.2-1.0 mg/dL Aspartate Amino Transferase (AST) 30 13-40 U/L Alanine Aminotransferase (ALT) 31 7-40 U/L Alkaline Phosphatase 98 46-116 U/L Total Protein 7.2 5.7-8.2 g/dL Albumin 4.3 3.2-4.8 g/dL [facility] [id number] [place] [id number] Ph: [phone] DIAGNOSTIC IMAGING Diagnostic Imaging Report : [id number] Signed PATIENT: DESIREE KIRK ACCT: [id number] UNIT: [id number] : 1955 LOC: ER ROOM / BED: / AGE / SEX: 69 / M ADM STATUS: REG ER SERVICE 54 ORDERING PHYSICIAN: ZEFERINO GRANDA MD PROCEDURE(s): LTBFB - L TIB FIB XRAY REASON: wound / infection ORDER NUMBER(s): [id number], ACCESSION NUMBER(s): [id number] CLINICAL INDICATION: wound / infection TECHNIQUE: 8 radiographic views of the left tibia and fibula were obtained. Comparison: None FINDINGS/IMPRESSION: There is no fracture or dislocation. No periosteal reaction. No gas in the soft tissues. Mass of the amounts of soft tissue consistent with corpulent body habitus. If osteomyelitis is of concern recommend MRI. ATED BY: MARSHALL CAMACHO Jr., DO DICTATED DATE/TIME: 07/05/251945 SIGNED BY: MARSHALL CAMACHO Jr., DO SIGNED DATE/TIME: 07/05/251945 CC: Time of 1ST Reevaluation: 19:25 Reevaluation 1ST: Unchanged Patient Education/Counseling: Diagnosis, Treatment, Other (need for admission ) Family Education/Counseling: No Family Present SEPSIS Sepsis Screen Date sepsis recognized/suspect: Jul 05, 2025 Time Sepsis recognized/suspect: 1821 Recent Procedure: No On Antibiotic Therapy: No Respiratory Rate >20: No Heart Rate >90: No Temp<36 C (96.8 F) or >38.3 C: No SBP <90 or MAP <65 mmHG: No New Acute Mental Status Change: No Is the patient on CPAP, BIPAP,: No Physician Orders Blood Culture (07/05/25 18:55) L Tib Fib Xray (07/05/25 18:55) Vital Signs Date Time Temp Pulse Resp B/P (MAP) Pulse Ox O2 Delivery O2 Flow Rate FiO2 07/05/25 18:22 98.5 75 18 166/103 93 98.5 Laboratory Tests Test 07/05/25 19:05 Lactic Acid Level 1.2 mmol/L (0.4-2.0) White Blood Count 15.2 10^3/uL (4.4-10.8) H Departure 1 Departure Time of Disposition: 20:44 Impression: Primary Impression: Bilateral lower leg cellulitis Additional Impression: Venous stasis dermatitis of both lower extremities Disposition: 09 ADMITTED INPATIENT Admit to: Med Surg Condition: Guarded Comments 69-year-old male with a history of lymphedema now with worsened swelling and redness to both his legs and he has a wound and large blister to left leg due to skin breakdown. Patient was given IV antibiotics. White count is elevated. Patient will need to be admitted for supportive care and further workup. Critical Care Note Critical Care Time?: Yes (35 min-critical care time only) Critical care comment: Total critical care time: Approximately 36 minutes Due to a high probability of clinically significant, life threatening deterioration, the patient required my highest level of preparedness to inter vene emergently and I personally spent this critical care time directly and personally managing the patient. This critical care time included obtaining a history; examining the patient; pulse oximetry; ordering and review of studies; arranging urgent treatment with development of a management plan; evaluation of patient's response to treatment; frequent reassessment; and, discussions with other providers. This critical care time was performed to assess and manage the high probability of imminent, life-threatening deterioration that could result in multi-organ failure. It was exclusive of separately billable procedures and treating other patients. Stability Stability form required: No Heart Score Heart Score: Heart Score Response (Comments) Value History N/A 0 EKG N/A 0 Age N/A 0 Risk Factors N/A 0 Troponin N/A 0 Total 0 I personally scribed for ZEFERINO GRANDA MD ([email or web address]) on 07/05/25 at 20:21. Electronically submitted by Law Parra [email or web address]). ZEFERINO GRANDA MD Jul 05, 2025 20:21
[2025-07-05] MEDS ORDERED: ONDANSETRON HCL 4 MG/2 ML VIAL IV PRN (21:30)
[2025-07-05] MEDS ORDERED: ACETAMINOPHEN 325 MG TAB PO PRN (21:30)
[2025-07-05] MEDS ORDERED: VANCOMYCIN PER PHARMACY 0 MG IV SCH (21:30)
[2025-07-05] MEDS ORDERED: HYDROcodone-ACET 5/325MG TAB PO PRN (21:30)
[2025-07-05] MEDS ORDERED: DOCUSATE SOD 100 MG CAP PO PRN (21:30)
[2025-07-05] MEDS ORDERED: NITROGLYCERIN 0.4 MG SL TAB SL PRN (22:15)
[2025-07-05] MEDS ORDERED: MORPHINE SULFATE INJ 2 MG/ml SYRG IV PRN (22:15)
--- NOTE | 2025-07-05 22:17 | DVHHP2 ---
History of Present Illness Reason for Visit: Bilateral lower leg cellulitis History of Present Illness The patient is a 69-year-old male morbidly obese with past medical history of chronic lymphedema, hypertension, hyperlipidemia, and gout presented to [facility] ED with complaint of cysts of the left lower leg. Patient reports on history of chronic lymphedema to his bilateral lower extremities for over the past 3 years. Patient was seen and evaluated in the ED, laboratory data shows WBC 15.2, platelets 289, sodium 147, potassium 3.0, BUN 12, creatinine 0.90, GFR 92, glucose 89, calcium 9.5, lactic acid 1.2, blood pressure 166/103, heart rate 75, temperature 98.5 F, O2 saturation 96% on room air. Tibia/fibula x-ray revealing mass of the amount of soft tissue consistent with corpulent body habitus. Please see medication orders section in the computer. On my assessment, patient denied chest pain, no headache, dizziness, diaphoresis, shortness of breaths, no nausea, vomiting, fever, no chills. Patient was admitted for further evaluation and medical management. Past Medical History Gout, High Lipids, HTN, Chronic lymphedema Past Surgical History Denies all surgeries Family History Reviewed, noncontributory to the management of this case. Past Social History The patient lives at home, denies smoking, alcohol or illicit drugs abuse. Review of Systems Constitutional: Yes: Weakness; No: Fever, Chills, Sweats, Malaise, Other Eyes: No: Pain, Vision change, Conjunctivae inflammation, Eyelid inflammation, Other, Redness ENT: No: Ear pain, Ear discharge, Nose pain, Nose discharge, Nose congestion, Mouth pain, Mouth swelling, Throat pain, Throat swelling, Other Respiratory: No: Cough, Dry, Shortness of breath, SOB with excertion, Wheezing, Hemoptysis, Pleuritic Pain, Sputum, Wheezing, Other Cardiovascular: No: Chest Pain, Palpitations, Orthopnea, Paroxysmal Noc. Dyspnea, Edema, Lt Headedness, Other Gastrointestinal: No: Nausea, Vomiting, Abdominal Pain, Diarrhea, Constipation, Melena, Hematochezia, Other Genitourinary: No Dysuria, No Frequency, No Incontinence, No Hematuria, No Retention, No Other Musculoskeletal: other (Lower extremity lymphedema); No: neck pain, shoulder pain, arm pain, back pain, hand pain, leg pain, foot pain Skin: Lesions, Other (Left lower extremity blisters); No: Rash, Jaundice, Bruising Neurological: No: Weakness, Numbness, Incoordination, Change in speech, Confusion, Seizures, Other Allergies: Coded Allergies: NO KNOWN ALLERGIES (Unverified , 06/10/21) Medications Current Medications Medications Dose Ordered Sig/Krista Route Start Time Stop Time Status Last Admin Dose Admin Vancomycin HCl 0 ml @ 0 mls/hr PER PHARMACY IV 07/05/25 21:30 UNV Ceftriaxone Sodium 50 ml @ 100 mls/hr DAILY@09 IV 07/06/25 09:00 Metoprolol Tartrate 50 mg BID PO 07/05/25 22:00 Clonidine HCl 0.1 mg Q4HP PRN PO 07/05/25 21:30 Atorvastatin Calcium 10 mg HS PO 07/05/25 22:00 Acetaminophen/ Hydrocodone Bitart 1 tab Q4HP PRN PO 07/05/25 21:30 Ondansetron HCl 4 mg Q4HP PRN IV 07/05/25 21:30 UNV Docusate Sodium 100 mg BIDPRN PRN PO 07/05/25 21:30 Enoxaparin Sodium 40 mg DAILY SC 07/06/25 10:00 Zinc Sulfate 220 mg DAILY PO 07/06/25 10:00 Ascorbic Acid 500 mg BID PO 07/05/25 22:00 Acetaminophen 650 mg Q6HP PRN PO 07/05/25 21:30 Vancomycin HCl 250 ml @ 250 mls/hr Q1H IV 07/05/25 22:00 07/05/25 23:59 Exam Vital Signs Vital Signs Date Time Temp Pulse Resp B/P (MAP) Pulse Ox O2 Delivery O2 Flow Rate FiO2 07/05/25 21:45 98.2 66 19 158/89 (112) 96 98.2 General Appearance: Alert, Oriented X3, Cooperative, No acute distress HEENT: Atraumatic, PERRLA, EOMI, Mucous membr. moist/pink Respiratory: Clear to auscultation, Normal air movement Cardiovascular: Regular rate, Normal S1, Normal S2, No murmurs Abdominal: Normal bowel sounds, Soft, No tenderness, No hepatospenomegaly, No masses Extremities: No clubbing, No cyanosis, Normal pulses, Other (Lower extremity swelling/blisters) Skin: No rashes Neuro: Normal speech, Normal tone, Sensation intact, Cranial nerves 3-12 NL, Reflexes 2+, Other (Generalized weakness) Psych/Mental Status: Mental status NL, Mood NL Labs/Xrays Labs Test 07/05/25 19:05 Range/Units White Blood Count 15.2 H 4.4-10.8 10^3/uL Red Blood Count 5.59 4.5-5.90 10^6/uL Hemoglobin 16.6 13.5-17.5 g/dL Hematocrit 48.7 41.0-53.0 % Mean Corpuscular Volume 87.2 80.0-100.0 fL Mean Corpuscular Hemoglobin 29.7 28.0-32.0 pg Mean Corpuscular Hemoglobin Concent 34.0 32.0-36.0 g/dL Red Cell Distribution Width 14.3 11.8-14.3 % Platelet Count 289 140-450 10^3/uL Mean Platelet Volume 6.9 6.9-10.8 fL Neutrophils (%) (Auto) 70.9 37.0-80.0 % Lymphocytes (%) (Auto) 15.2 10.0-50.0 % Monocytes (%) (Auto) 9.7 0.0-12.0 % Eosinophils (%) (Auto) 3.7 0.0-7.0 % Basophils (%) (Auto) 0.5 0.0-2.0 % Neutrophils # (Auto) 10.8 H 1.6-8.6 10 ^3/uL Lymphocytes # (Auto) 2.3 0.4-5.4 10 ^3/uL Monocytes # (Auto) 1.5 H 0-1.3 10 ^3/uL Eosinophils # (Auto) 0.6 0-0.8 10 ^3/uL Basophils # (Auto) 0.1 0-0.2 10 ^3/uL Nucleated Red Blood Cells 0.2 % Sodium Level 147 H 136-145 mmol/L Potassium Level 3.0 L 3.5-5.1 mmol/L Chloride Level 110 H 98-107 mmol/L Carbon Dioxide Level 27 20-31 mmol/L Anion Gap 10 5-15 Blood Urea Nitrogen 12 9-23 mg/dL Creatinine 0.90 0.700-1.30 mg/dL Glomerular Filtration Rate Calc 92 >90 mL/min BUN/Creatinine Ratio 13.3 10.0-20.0 Serum Glucose 89 74-106 mg/dL Lactic Acid Level 1.2 0.4-2.0 mmol/L Calcium Level 9.5 8.7-10.4 mg/dL Total Bilirubin 1.0 0.2-1.0 mg/dL Aspartate Amino Transferase (AST) 30 13-40 U/L Alanine Aminotransferase (ALT) 31 7-40 U/L Alkaline Phosphatase 98 46-116 U/L Total Protein 7.2 5.7-8.2 g/dL Albumin 4.3 3.2-4.8 g/dL PATIENT: DESIREE KIRK ACCT: [id number] UNIT: [id number] : 1955 LOC: ER ROOM / BED: / AGE / SEX: 69 / M ADM STATUS: REG ER SERVICE 54 ORDERING PHYSICIAN: ZEFERINO GRANDA MD PROCEDURE(s): LTBFB - L TIB FIB XRAY REASON: wound / infection ORDER NUMBER(s): [id number], ACCESSION NUMBER(s): [id number] CLINICAL INDICATION: wound/infection TECHNIQUE: 8 radiographic views of the left tibia and fibula were obtained. Comparison: None FINDINGS/IMPRESSION: There is no fracture or dislocation. No periosteal reaction. No gas in the soft tissues. Mass of the amounts of soft tissue consistent with corpulent body habitus. If osteomyelitis is of concern recommend MRI. SEPSIS Sepsis Screen Date sepsis recognized/suspect: Jul 05, 2025 Time Sepsis recognized/suspect: 2144 Recent Procedure: No On Antibiotic Therapy: Yes Respiratory Rate >20: No Heart Rate >90: No Temp<36 C (96.8 F) or >38.3 C: No SBP <90 or MAP <65 mmHG: No New Acute Mental Status Change: No Is the patient on CPAP, BIPAP,: No Physician Orders Blood Culture (07/05/25 18:55) L Tib Fib Xray (07/05/25 18:55) Vancomycin Per Pharmacy (07/05/25 21:30) Ceftriaxone 1gm/50ml (Rocephin) (07/06/25 09:00) Metoprolol Tartrate Tablet (Lopressor Ta (07/05/25 22:00) Clonidine Hcl Tablet (Catapres Tablet) (07/05/25 21:30) Atorvastatin (Lipitor) (07/05/25 22:00) Allergies (07/05/25 21:20) Code Status (07/05/25 21:20) Oxygen Per Hour (07/05/25 21:20) Hydrocodone-Acet 5/325mg Tab ([place] 5/32 (07/05/25 21:30) Ondansetron Hcl (Zofran) (07/05/25 21:30) Docusate Sodium Capsule (Colace Capsule) (07/05/25 21:30) Enoxaparin Sodium (Lovenox) (07/06/25 10:00) Zinc Sulfate (07/06/25 10:00) Ascorbic Acid Tablet (Vitamin C Tablet) (07/05/25 22:00) Complete Blood Count (07/06/25 04:00) Comprehensive Metabolic Panel (07/06/25 04:00) Cardiac Diet-2gna,Lofat,Lochol (07/06/25 Breakfast) Condition: Serious (07/05/25 21:20) Acetaminophen Tablet (Tylenol Tablet) (07/05/25 21:30) Bedrest With Bathroom Privileg (07/05/25 21:20) Vancomycin 1gm/250ml Kit (07/05/25 22:00) Admit (07/05/25 22:15) Nitroglycerin Sublingual (Ntrostat Subli (07/05/25 22:15) Morphine Sulfate Injection (07/05/25 22:15) Notify Md Of Changes From Base (07/05/25 22:15) Emergency Dysrhythmia Protocol (07/05/25 22:15) Oxygen By Nasal Cannula (07/05/25 22:15) Vital Signs Date Time Temp Pulse Resp B/P (MAP) Pulse Ox O2 Delivery O2 Flow Rate FiO2 07/05/25 21:45 98.2 66 19 158/89 (112) 96 98.2 07/05/25 18:22 98.5 75 18 166/103 93 98.5 Laboratory Tests Test 07/05/25 19:05 Lactic Acid Level 1.2 mmol/L (0.4-2.0) White Blood Count 15.2 10^3/uL (4.4-10.8) H Assessment/Plan Assessment/Plan Bilateral lower leg cellulitis Hypokalemia Leukocytosis, unspecified Venous stasis dermatitis of both lower extremities Generalized weakness Plan 1. Admit to med surge unit 2. Breathing treatment 3. Pain control management 4. IV antibiotic management 5. Management of fluids and electrolytes 6. Consultation for hospitalist/wound care 7. Diagnostic test tibia/fibula x-ray 8. DVT prophylaxis-on Lovenox 9. Repeat labs CBC, CMP in a.m. 10.Home medication reviewed and reconciled 11. Continue with current medical management 12. Treatment plan discussed with patient and RN. Patient verbalized understanding. Plan discussed with: Patient, Other (RN) My Orders Orders - CHRISTIANO FITZGERALD DNP Procedure Category Date Status Time Vancomycin Per PHA 07/05/25 Pending Pharmacy 21:30 Ceftriaxone 1gm/50ml PHA 07/06/25 In Process (Rocephin) 09:00 Metoprolol Tartrate PHA 07/05/25 In Process Tablet (Lopressor Ta 22:00 Clonidine Hcl Tablet PHA 07/05/25 In Process (Catapres Tablet) 21:30 Atorvastatin (Lipitor) [facility] 07/05/25 In Process 22:00 Allergies [facility] 07/05/25 In Process 21:20 Code Status CODE 07/05/25 Transmitted 21:20 Oxygen Per Hour RT 07/05/25 Transmitted 21:20 Hydrocodone-Acet PHA 07/05/25 In Process 5/325mg Tab ([place] 21:30 Ondansetron Hcl PHA 07/05/25 Pending (Zofran) 21:30 Docusate Sodium PHA 07/05/25 In Process Capsule (Colace 21:30 Enoxaparin Sodium PHA 07/06/25 In Process (Lovenox) 10:00 Zinc Sulfate PHA 07/06/25 In Process 10:00 Ascorbic Acid Tablet [facility] 07/05/25 In Process (Vitamin C Tablet) 22:00 Complete Blood Count LAB 07/06/25 Verified 04:00 Comprehensive LAB 07/06/25 Verified Metabolic Panel 04:00 Cardiac DIET 07/06/25 Transmitted Diet-2gna,Lofat,Lochol Breakfast Condition: Serious [facility] 07/05/25 In Process 21:20 Acetaminophen Tablet [facility] 07/05/25 In Process (Tylenol Tablet) 21:30 Bedrest With Bathroom [facility] 07/05/25 In Process Privileg 21:20 Vancomycin 1gm/250ml PHA 07/05/25 In Process Kit 22:00 Admit ADMIT 07/05/25 Verified 22:15 Nitroglycerin [facility] 07/05/25 Verified Sublingual (Ntrostat 22:15 Morphine Sulfate [facility] 07/05/25 Verified Injection 22:15 Notify Of Changes [facility] 07/05/25 Verified From Base 22:15 Emergency Dysrhythmia [facility] 07/05/25 Verified Protocol 22:15 Oxygen By Nasal RT 07/05/25 Verified Cannula 22:15 Problem List: (1) Bilateral lower leg cellulitis (2) Hypokalemia (3) Leukocytosis, unspecified (4) Venous stasis dermatitis of both lower extremities (5) Generalized weakness Date of Service: Jul 05, 2025 Billing Provider: CHRISTIANO FITZGERALD DNP Common Visit Codes: 20358-[id number] INP/OBS CARE (HIGH) CHRISTIANO FITZGERALD DNP Jul 05, 2025 22:17
[2025-07-05] MEDS: POTASSIUM CHL 20 Meq TABLET PO ONE (23:44)
[2025-07-05] MEDS: ATORVASTATIN 20 MG TAB PO SCH (23:44)
[2025-07-05] MEDS: ceFAZolin 1GM/50ML 50 ML IV ONE (23:44)
[2025-07-05] MEDS: ASCORBIC ACID 500 MG TAB PO SCH (23:50)
[2025-07-05] MEDS: METOPROLOL TARTRATE 50 MG TAB PO SCH (23:54)
[2025-07-06] VITALS (7 sets, daily range): BP systolic 149–177; BP diastolic 86–103; PULSE 52–71; RESP 18–19; TEMP 96–98.3; O2SAT 94–98
[2025-07-06] MEDS: SODIUM CHLORIDE 0.9% 1,000 ML IVB ONE
[2025-07-06] MEDS: VANCOMYCIN 1GM/250ML KIT 250 ML IV ONE (00:54)
[2025-07-06] MEDS: VANCOMYCIN 1GM/250ML IV SCH ×2 (00:54→02:30)
[2025-07-06 04:31] LABS: Hematocrit 44.8 % (41.0-53.0); Hemoglobin 14.4 g/dL (13.5-17.5); Mean Corpuscular Hemoglobin 31.0 pg (28.0-32.0); Mean Corpuscular Volume 96.5 fL (80.0-100.0); Nucleated Red Blood Cells % 0.1 %
[2025-07-06 04:43] LABS: Albumin 3.5 g/dL (3.2-4.8); Anion Gap 9 (5-15); BUN/Creatinine Ratio 26.5 (10.0-20.0); Carbon Dioxide 24 mmol/L (20-31); Chloride 99 mmol/L (98-107); Glucose 101 mg/dL (74-106); Total Protein 6.6 g/dL (5.7-8.2)
[2025-07-06 04:49] LABS: Alanine Aminotransferase 160 U/L (7-40); Alkaline Phosphatase 167 U/L (46-116); Bilirubin, Total 1.8 mg/dL (0.2-1.0); Blood Urea Nitrogen 45 mg/dL (9-23); Calcium 8.3 mg/dL (8.7-10.4); Potassium 5.3 mmol/L (3.5-5.1); Sodium 132 mmol/L (136-145)
[2025-07-06] MEDS: ENOXAPARIN SOD 40 MG/0.4 ML SYRINGE SC SCH (10:42)
[2025-07-06] MEDS: ZINC SULFATE 220mg CAP or TAB PO SCH (10:42)
--- NOTE | 2025-07-06 11:06 | DVHPNRES ---
Progress Note Date Seen: Jul 06, 2025 Resident Creating Document: MUMTAZ STONE Medical Necessity Reason Pt with a Central, PICC or Fol: No Subjective Review of Systems Patient is a 69-year-old male who presented to [facility] ED with complaint of left lower leg blister and nonhealing wound. Patient reports sudden swelling in the back of the leg yesterday morning, without pain. While waiting in the ED around 1:15 p.m. the swollen area "burst like a balloon", releasing a large amount of clear fluid onto the floor. No bleeding reported. Has History of chronic bilateral lower limb lymphedema and recurrent cellulitis (last hospitalization in 2020). Followed by a lymphedema clinic (tool coordinator, Dr. Kwon) for about 1 year and used a compression garments. Stopped attending the lymphedema clinic recently because they do not manage wounds. Currently seeing wound care (Dr. Del Castillo) once a week (about 3-4 weeks so far). A nurse was scheduled to visit home Sunday/Sunday/Sunday for dressing changes starting this week. No pain no fever no shortness breath. Past Medical History: HTN, dyslipidemia, elevated uric acid with allopurinol (denies gout attack), Chronic lymphedema with history of cellulitis under wound care with home health services, retinal detachments status postop. Past Surgical History: Retinal detachment repair surgery Family History: Reviewed, noncontributory to the management of this case. Past Social History: The patient lives at home, denies smoking, alcohol or illicit drugs abuse. Next of kin is son Home medication: Allopurinol, metoprolol, atorvastatin, furosemide (he has not been taking diuretics for the past month) Patient seen and examined at bedside. Patient is alert and oriented to time, place person and responding to all questions. Eyes: No Pain, No Vision change, No Conjunctivae inflammation, No Eyelid inflammation, No Other, No Redness ENT: No Ear pain, No Ear discharge, No Nose pain, No Nose discharge, No Nose congestion, No Mouth pain, No Mouth swelling, No Throat pain, No Throat swelling, No Other Cardiovascular: No Chest Pain, No Palpitations, No Orthopnea, No Paroxysmal No Dyspnea, No Edema, No Lt Headedness, No Other Respiratory: No Cough, No Dry, No Shortness of breath, No SOB with exertion, No Wheezing, No Hemoptysis, No Pleuritic Pain, No Sputum, No Other Gastrointestinal: No Nausea, No Vomiting, No Abdominal Pain, No Diarrhea, No Constipation, No Melena, No Hematochezia, No Other Genitourinary: No Dysuria, No Frequency, No Incontinence, No Hematuria, No Retention, No Other Musculoskeletal: Lower extremity lymphedema. No other, No neck pain, No shoulder pain, No arm pain, No back pain, No hand pain, No leg pain, No foot pain Skin: Left lower extremity blisters. Rash, No Lesions, No Jaundice, No Bruising, No Other Objective vital signs Vital Sign Date Time Temp Pulse Resp B/P (MAP) Pulse Ox O2 Delivery O2 Flow Rate FiO2 07/06/25 10:43 67 144/67 07/06/25 07:30 19 96 Room Air* 0 21 07/06/25 07:30 97.8 97.8 Total Intake and Output 07/05/25 07/05/25 07/06/25 15:00 23:00 07:00 Intake Total 1050 ml Balance 1050 ml medications Current Medications Medications Dose Ordered Sig/Krista Route Start Time Stop Time Status Last Admin Dose Admin Vancomycin HCl 0 ml @ 0 mls/hr PER PHARMACY IV 07/05/25 21:30 Ceftriaxone Sodium 50 ml @ 100 mls/hr DAILY@09 IV 07/06/25 09:00 07/06/25 09:15 100 MLS/HR Metoprolol Tartrate 50 mg BID PO 07/05/25 22:00 07/06/25 10:43 50 MG Clonidine HCl 0.1 mg Q4HP PRN PO 07/05/25 21:30 Atorvastatin Calcium 10 mg HS PO 07/05/25 22:00 07/05/25 23:44 10 MG Acetaminophen/ Hydrocodone Bitart 1 tab Q4HP PRN PO 07/05/25 21:30 Ondansetron HCl 4 mg Q4HP PRN IV 07/05/25 21:30 Docusate Sodium 100 mg BIDPRN PRN PO 07/05/25 21:30 Enoxaparin Sodium 40 mg DAILY SC 07/06/25 10:00 07/06/25 10:42 40 MG Zinc Sulfate 220 mg DAILY PO 07/06/25 10:00 07/06/25 10:42 220 MG Ascorbic Acid 500 mg BID PO 07/05/25 22:00 07/06/25 10:43 500 MG Acetaminophen 650 mg Q6HP PRN PO 07/05/25 21:30 Nitroglycerin 0.4 mg Q5MINP PRN SL 07/05/25 22:15 Morphine Sulfate 2 mg Q30M PRN IV 07/05/25 22:15 Vancomycin HCl 250 ml @ 166.667 mls/hr Q24H IV 07/07/25 01:00 Examination General Appearance: Cooperative. Well developed. Well nourished. NAD Head Exam: Normal inspection Neck Exam: Normal inspection. Non-tender. Normal alignment Pulmonary/Respiratory: Chest non-tender. Clear bilateral breath sounds, no crackles, no wheezing. Cardiovascular/Chest: Regular rate and rhythm. No murmurs. No JVD. Peripheral Pulses: 2+ Radial (R). 2+ Radial (L). Lower limb pulses are unobtainable due to lymphedema Abdominal Exam: Normal bowel sounds. Soft. normal abdomen, no visible veins, Nontender. No hepatospenomegaly. No masses Ankle Exam: Negative ankle edema Lower extremities: Bilateral lower extremities with nonpitting edema. Multiple wounds present; one large wound on left lower leg, drainage noted under wraps on right leg. Neuro/Mental Status: A&O x4. Coherent. Thoughts/Psych: Normal thought pattern. Appropriate mood and affect. Good judgement and insight Skin: Wounds wrapped, drainage noted; no acute signs of systemic infection documented. laboratory and microbiology Laboratory Tests 07/06/25 04:03 Test 07/06/25 04:03 Range/Units Serum Glucose 101 74-106 mg/dL Labs and/or images reviewed: Labs reviewed by me, Image(s) reviewed by me Problem List/Assessment/Plan Problem List/Assessment/Plan Bilateral lower limb cellulitis Sepsis due to cellulitis Venous stasis dermatitis of both lower extremities Rule out deep vein thrombosis Leukocytosis, unspecified Generalized weakness Bilateral lower extremity venous US ordered Tibia/Fibular X-Ray: There is no fracture or dislocation. No periosteal reaction. No gas in the soft tissues. Mass of the amounts of soft tissue consistent with corpulent body habitus. pain management with Tylenol, Morphine and [place] Ceftriaxone IV daily Clindamycin 600 MG IV q8h Zofran 4 MG IV q4h PRN Vitamin C 500 MG PO hs Zinc sulfate Blood culture Wound culture Podiatry consult Wound consult Infectious disease consult Hypokalemia replaced Essential hypertension Metoprolol 50 MG PO bid Lisinopril 5 mg p.o. daily Morbidly obese, BMI 54.6 kg/m2 I have counseled the patient on healthy lifestyle modifications Diet: Cardiac Goals of care: Full code, discussed for >30 minutes (per patient if he is in a vegetative state he would like to be a DNR/DNI) Plan discussed with patient Plan discussed with Dr. Rosa Plan discussed with: Patient, Other (Nurses) Sepsis reassessment post fluid Is the fluid challenge complet: Yes Date of Reassessment: Jul 06, 2025 Time of Reassessment: 99 Blood Culture Time: 1904 Time Antibiotics Given: 2344 Systolic BP: 140 Diastolic BP: 84 Blood Pressure Mean: 102 Respiration: 18 Respiratory Effort: Non-Labored Respiratory Pattern: Regular Oxygen Saturation: 97 Pulse Rate: 68 Pulse Location: Radial Pulse Strength: Normal Pulse Assessment Method: Palpation Pulse Rhythm: Regular Capillary Refill: < 3 seconds Heart Sounds: S1 & S2 Breath sounds: Clear Skin Moisture: Dry Skin Tugor: WNL Skin Color: WNL Date of Service: Jul 06, 2025 Billing Provider: JEREMY ROSA MD Common Visit Codes: [id number] INP/OBS CARE(HIGH) MUMTAZ STONE RESIDENT Jul 06, 2025 11:06 MARIA DE JESUS STEVENS RESIDENT Jul 06, 2025 20:08
[2025-07-06] MEDS: SODIUM CHLORIDE 0.9% 1,000 ML IV ONE (13:13)
[2025-07-06 16:17] LABS: Alanine Aminotransferase 26 U/L (7-40); Albumin 4.1 g/dL (3.2-4.8); Alkaline Phosphatase 88 U/L (46-116); Anion Gap 10 (5-15); BUN/Creatinine Ratio 12.8 (10.0-20.0); Bilirubin, Total 1.1 mg/dL (0.2-1.0); Blood Urea Nitrogen 10 mg/dL (9-23); Calcium 9.2 mg/dL (8.7-10.4); Carbon Dioxide 26 mmol/L (20-31); Glucose 83 mg/dL (74-106); Sodium 144 mmol/L (136-145); Total Protein 7.1 g/dL (5.7-8.2)
[2025-07-06 16:23] LABS: Chloride 108 mmol/L (98-107); Potassium 3.4 mmol/L (3.5-5.1)
[2025-07-06] MEDS: POTASSIUM EFFERVESENT TAB 25 MEQ PO ONE (17:54)
[2025-07-06] MEDS: CLINDAMYCIN 600MG IV 50 ML IV ONE (17:55)
--- NOTE | 2025-07-06 20:30 | DVH ---
Bilateral lower extremity venous duplex Clinical History: Rule out DVT, bilateral lwer limb swelling Comparison: US BILAT LOWER DVT on DOS: 10/17/22, BI LOWER DVT on DOS: 06/10/21 Technique: Duplex Doppler evaluation of the deep venous systems of both lower extremities from the common femoral veins to the popliteal veins including color Doppler and spectral/pulsed waveform analysis was performed. Findings: RIGHT SIDE: The common femoral vein demonstrates appropriate compressibility and waveform variability. There is compressibility/patency of the great saphenous vein at the proximal thigh. The femoral vein demonstrates appropriate compressibility and waveform variability. The deep femoral vein demonstrates appropriate compressibility and waveform variability. The popliteal vein demonstrates appropriate compressibility and waveform variability. There is normal compressibility at the tibioperoneal trunk. LEFT SIDE: The common femoral vein demonstrates appropriate compressibility and waveform variability. There is compressibility/patency of the great saphenous vein at the proximal thigh. The femoral vein demonstrates appropriate compressibility and waveform variability. The deep femoral vein demonstrates appropriate compressibility and waveform variability. The popliteal vein demonstrates appropriate compressibility and waveform variability. There is normal compressibility at the tibioperoneal trunk. Impression: 1. No right or left femoropopliteal venous thrombosis.
--- NOTE | 2025-07-06 20:58 | DVH ---
BILATERAL Lower Extremity Arterial Duplex Date: 07/06/2025 07:55 PM Clinical History: Non healing wounds bilateral lower limbs Comparison: BILAT LOW EXT ART DUPLEX on DOS: 06/11/21 Technique: Duplex Doppler evaluation including color Doppler and spectral/pulsed waveform analysis of the lower extremity arteries was performed. Finding: RIGHT: Peak systolic velocities are as follows: CONVEYOR INSTALLER 163 cm/s triphasic waveform Deep femoral 75.1 cm/s biphasic waveform SFA proximal 133.7 cm/s triphasic waveform SFA mid-portion 111.7 cm/s triphasic waveform SFA distal 147.2 cm/s triphasic waveform Popliteal Proximal popliteal artery 118.9 cm/sec triphasic waveform Distal popliteal artery 117.5 cm/s biphasic waveform Right anterior tibial artery 77.8 cm/sec triphasic waveform Posterior tibial 65.6 cm/s triphasic waveform Dorsalis pedis 55.1 cm/s biphasic waveform The waveforms are biphasic and triphasic waveform LEFT: Peak systolic velocities are as follows: CONVEYOR INSTALLER 136.6 cm/s triphasic waveform Deep femoral 101.5 cm/s biphasic waveform SFA proximal 167.7 cm/s triphasic waveform 20-49% stenosis SFA mid-portion 101.5 cm/s triphasic waveform SFA distal 149.8 cm/s triphasic waveform Popliteal Proximal popliteal artery: 121.5 cm/s biphasic or triphasic waveform Distal popliteal artery: 148.5 cm/sec triphasic waveform Posterior tibial 48.2 cm/s triphasic waveform Anterior tibial 109.1 cm/s triphasic waveform Dorsalis pedis 54.7 cm/s biphasic waveform The waveforms are biphasic and triphasic waveform. REFERENCE VALUES, [facility] ([facility]) vascular Imaging Lab Criteria: Peak systolic velocity ranges (in cm/sec) are as follows: <150 cm/s - <20 % stenosis 150-200 cm/s - 20-49% stenosis 200-300 cm/s - 50-75% stenosis >300 cm/s -> 75% stenosis IMPRESSION: 1. There is no evidence for peripheral vascular insufficiency in the right lower extremity. Right proximal SFA 20-49% stenosis. 2. There is no evidence for peripheral vascular insufficiency in the left lower extremity. 3. No significant focal stenosis is identified.
[2025-07-06] MEDS: LISINOPRIL 5 MG TAB PO ONE (22:45)
[2025-07-07] VITALS (8 sets, daily range): BP systolic 144–170; BP diastolic 78–98; PULSE 50–68; RESP 17–20; TEMP 97.8–98.2; O2SAT 96–99
[2025-07-07] MEDS: CLINDAMYCIN 600MG IV 50 ML IV SCH (00:53)
[2025-07-07] MEDS ORDERED: VANCOMYCIN 1.5GM/250ML 250 ML IV SCH (01:00)
[2025-07-07 07:12] LABS: Hematocrit 48.4 % (41.0-53.0); Hemoglobin 16.2 g/dL (13.5-17.5); Mean Corpuscular Hemoglobin 29.8 pg (28.0-32.0); Mean Corpuscular Volume 89.0 fL (80.0-100.0); Nucleated Red Blood Cells % 0.0 %
[2025-07-07 07:18] LABS: Alanine Aminotransferase 23 U/L (7-40); Albumin 4.3 g/dL (3.2-4.8); Alkaline Phosphatase 88 U/L (46-116); Anion Gap 9 (5-15); BUN/Creatinine Ratio 13.4 (10.0-20.0); Blood Urea Nitrogen 13 mg/dL (9-23); Calcium 9.6 mg/dL (8.7-10.4); Carbon Dioxide 27 mmol/L (20-31); Glucose 89 mg/dL (74-106); Potassium 3.5 mmol/L (3.5-5.1); Sodium 144 mmol/L (136-145); Total Protein 7.3 g/dL (5.7-8.2)
[2025-07-07 07:28] LABS: Bilirubin, Total 1.3 mg/dL (0.2-1.0); Chloride 108 mmol/L (98-107)
[2025-07-07] MEDS: LISINOPRIL 5 MG TAB PO SCH (10:34)
--- NOTE | 2025-07-07 13:35 | DVHPNRES ---
Progress Note Date Seen: Jul 07, 2025 Resident Creating Document: MUMTAZ STONE Medical Necessity Reason Pt with a Central, PICC or Fol: No Subjective Review of Systems Patient is a 69-year-old male who presented to [facility] ED with complaint of left lower leg blister and nonhealing wound. Patient reports sudden swelling in the back of the leg yesterday morning, without pain. While waiting in the ED around 1:15 p.m. the swollen area "burst like a balloon", releasing a large amount of clear fluid onto the floor. No bleeding reported. Has History of chronic bilateral lower limb lymphedema and recurrent cellulitis (last hospitalization in 2020). Followed by a lymphedema clinic (paper rewinder operator, Dr. Kwon) for about 1 year and used a compression garments. Stopped attending the lymphedema clinic recently because they do not manage wounds. Currently seeing wound care (Dr. Del Castillo) once a week (about 3-4 weeks so far). A nurse was scheduled to visit home Sunday/Sunday/Sunday for dressing changes starting this week. No pain no fever no shortness breath. On 07/07/25, Left lower extremity noted to have copious clear drainage; wound was cleansed. Wound culture is pending. Past Medical History: HTN, dyslipidemia, elevated uric acid with allopurinol (denies gout attack), Chronic lymphedema with history of cellulitis under wound care with home health services, retinal detachments status postop. Past Surgical History: Retinal detachment repair surgery Family History: Reviewed, noncontributory to the management of this case. Past Social History: The patient lives at home, denies smoking, alcohol or illicit drugs abuse. Next of kin is son Home medication: Allopurinol, metoprolol, atorvastatin, furosemide (he has not been taking diuretics for the past month) Patient seen and examined at bedside. Patient is alert and oriented to time, place person and responding to all questions. Eyes: No Pain, No Vision change, No Conjunctivae inflammation, No Eyelid inflammation, No Other, No Redness ENT: No Ear pain, No Ear discharge, No Nose pain, No Nose discharge, No Nose congestion, No Mouth pain, No Mouth swelling, No Throat pain, No Throat swelling, No Other Cardiovascular: No Chest Pain, No Palpitations, No Orthopnea, No Paroxysmal No Dyspnea, No Edema, No Lt Headedness, No Other Respiratory: No Cough, No Dry, No Shortness of breath, No SOB with exertion, No Wheezing, No Hemoptysis, No Pleuritic Pain, No Sputum, No Other Gastrointestinal: No Nausea, No Vomiting, No Abdominal Pain, No Diarrhea, No Constipation, No Melena, No Hematochezia, No Other Genitourinary: No Dysuria, No Frequency, No Incontinence, No Hematuria, No Retention, No Other Musculoskeletal: Lower extremity lymphedema. No other, No neck pain, No shoulder pain, No arm pain, No back pain, No hand pain, No leg pain, No foot pain Skin: Left lower extremity blisters. Rash, No Lesions, No Jaundice, No Bruising, No Other Objective vital signs Vital Sign Date Time Temp Pulse Resp B/P (MAP) Pulse Ox O2 Delivery O2 Flow Rate FiO2 07/07/25 11:33 59 164/93 07/07/25 09:00 98.1 20 99 98.1 07/06/25 20:00 Room Air* 0 21 Total Intake and Output 07/06/25 07/06/25 07/07/25 15:00 23:00 07:00 Intake Total 50 ml 350 ml 400 ml Balance 50 ml 350 ml 400 ml medications Current Medications Medications Dose Ordered Sig/Krista Route Start Time Stop Time Status Last Admin Dose Admin Ceftriaxone Sodium 50 ml @ 100 mls/hr DAILY@09 IV 07/06/25 09:00 07/07/25 10:32 100 MLS/HR Metoprolol Tartrate 50 mg BID PO 07/05/25 22:00 07/07/25 10:33 50 MG Atorvastatin Calcium 10 mg HS PO 07/05/25 22:00 07/06/25 22:00 10 MG Acetaminophen/ Hydrocodone Bitart 1 tab Q4HP PRN PO 07/05/25 21:30 Ondansetron HCl 4 mg Q4HP PRN IV 07/05/25 21:30 Docusate Sodium 100 mg BIDPRN PRN PO 07/05/25 21:30 Enoxaparin Sodium 40 mg DAILY SC 07/06/25 10:00 07/07/25 10:33 40 MG Zinc Sulfate 220 mg DAILY PO 07/06/25 10:00 07/07/25 10:33 220 MG Ascorbic Acid 500 mg BID PO 07/05/25 22:00 07/07/25 10:33 500 MG Acetaminophen 650 mg Q6HP PRN PO 07/05/25 21:30 Morphine Sulfate 2 mg Q30M PRN IV 07/05/25 22:15 Clindamycin Phosphate 50 ml @ 50 mls/hr Q8HR IV 07/07/25 00:15 07/07/25 06:01 50 MLS/HR Lisinopril 5 mg DAILY PO 07/07/25 10:00 07/07/25 10:34 5 MG Examination General Appearance: Cooperative. Well developed. Well nourished. NAD Head Exam: Normal inspection Neck Exam: Normal inspection. Non-tender. Normal alignment Pulmonary/Respiratory: Chest non-tender. Clear bilateral breath sounds, no crackles, no wheezing. Cardiovascular/Chest: Regular rate and rhythm. No murmurs. No JVD. Peripheral Pulses: 2+ Radial (R). 2+ Radial (L). Lower limb pulses are unobtainable due to lymphedema Abdominal Exam: Normal bowel sounds. Soft. normal abdomen, no visible veins, Nontender. No hepatospenomegaly. No masses Ankle Exam: Negative ankle edema Lower extremities: Bilateral lower extremities with nonpitting edema. Multiple wounds present; one large wound on left lower leg, drainage noted under wraps on right leg. Neuro/Mental Status: A&O x4. Coherent. Thoughts/Psych: Normal thought pattern. Appropriate mood and affect. Good judgement and insight Skin: Wounds wrapped, drainage noted; no acute signs of systemic infection documented. laboratory and microbiology Laboratory Tests 07/07/25 06:26 Test 07/07/25 06:26 Range/Units Serum Glucose 89 74-106 mg/dL Microbiology Date/Time Source Procedure Growth Status 07/05/25 19:15 Blood Blood Culture - Preliminary NO GROWTH AFTER 24 HOURS OF INCUBATION. Resulted Labs and/or images reviewed: Labs reviewed by me, Image(s) reviewed by me Problem List/Assessment/Plan Problem List/Assessment/Plan Bilateral lower leg cellulitis Sepsis due to cellulitis Venous stasis dermatitis of both lower extremities Ruled out deep vein thrombosis Leukocytosis, unspecified Generalized weakness Bilateral lower extremity venous duplex: No right or left femoropopliteal venous thrombosis. Bilateral lower extremity arterial duplex: There is no evidence for peripheral vascular insufficiency in the left/right lower extremity. Right proximal SFA 20- 49% stenosis. Tibia/Fibular X-Ray: There is no fracture or dislocation. No periosteal reaction. No gas in the soft tissues. Mass of the amounts of soft tissue consistent with corpulent body habitus. pain management with Tylenol, Morphine and [place] Ceftriaxone IV daily Clindamycin 600 MG IV q8h Zofran 4 MG IV q4h PRN Vitamin C 500 MG PO hs Zinc sulfate Blood culture Gram stain: Rare white blood cells seen. Rare Gram Negative Rods. Rare Gram positive Cocci in fran Wound culture: Pending Podiatry consult Wound consult Infectious disease consult Essential hypertension Metoprolol 50 MG PO bid Lisinopril 10 MG daily PO Hypokalemia replaced Morbidly obese, BMI 54.6 kg/m2 I have counseled the patient on healthy lifestyle modifications Diet: Cardiac Goals of care: DNR, discussed Plan discussed with patient Plan discussed with Dr. Rosa Plan discussed with: Patient, Other (RN) My Orders My Orders Orders - MUMTAZ STONE Procedure Category Date Status Time Cleanse Wound With LAYNE 07/06/25 In Process Wound Clean 13:15 * Dietary Consult CONS 07/06/25 Transmitted 17:56 Complete Blood Count LAB 07/08/25 Verified 04:00 Basic Metabolic Panel LAB 07/08/25 Verified 04:00 Dietary Evaluation Review Comments: Wt management Encourage and monitor PO intakes to meet her needs at minimum of 75% Expected Outcomes/Goals: revcovers from sepsis, healed wounds and gradual wt loss, Food and Nutrition Intake (Sev: <50% est energy req 5days Sepsis reassessment post fluid Is the fluid challenge complet: Yes Date of Reassessment: Jul 06, 2025 Time of Reassessment: 010 Blood Culture Time: 1904 Time Antibiotics Given: 2344 Systolic BP: 140 Diastolic BP: 84 Blood Pressure Mean: 102 Respiration: 18 Respiratory Effort: Non-Labored Respiratory Pattern: Regular Oxygen Saturation: 97 Pulse Rate: 68 Pulse Location: Radial Pulse Strength: Normal Pulse Assessment Method: Palpation Pulse Rhythm: Regular Capillary Refill: < 3 seconds Heart Sounds: S1 & S2 Breath sounds: Clear Skin Moisture: Dry Skin Tugor: WNL Skin Color: WNL Visit Coding STANDARD RES Billing Provider: JEREMY ROSA MD Date of Service if different f: Jul 07, 2025 Common Visit Codes: [id number] INP/OBS CARE(HIGH) MUMTAZ STONE Jul 07, 2025 13:35
[2025-07-07] MEDS: LISINOPRIL 5 MG TAB PO ONE (14:52)
[2025-07-07] MEDS: hydrALAZINE HCL 20 MG/ML VL IV ONE (18:37)
[2025-07-08 01:00] VITALS: BP 165/95; PULSE 57; RESP 17; TEMP 97.6; O2SAT 98
[2025-07-08 05:00] VITALS: BP 156/91; PULSE 54; RESP 17; TEMP 98.5; O2SAT 96
[2025-07-08 07:42] LABS: Potassium 4.1 mmol/L (3.5-5.1)
[2025-07-08 07:43] LABS: Anion Gap 12 (5-15); Carbon Dioxide 27 mmol/L (20-31)
[2025-07-08 07:44] LABS: Calcium 9.6 mg/dL (8.7-10.4)
[2025-07-08 07:48] LABS: BUN/Creatinine Ratio 20.2 (10.0-20.0); Blood Urea Nitrogen 17 mg/dL (9-23); Chloride 108 mmol/L (98-107); Glucose 86 mg/dL (74-106); Sodium 147 mmol/L (136-145)
[2025-07-08] MEDS: LISINOPRIL 5 MG TAB PO SCH (08:39)
[2025-07-08 09:00] VITALS: BP 172/86; PULSE 70; RESP 18; TEMP 97.8; O2SAT 95
--- NOTE | 2025-07-08 09:59 | DVHCONRES ---
Date Seen: Jul 08, 2025 Reason for Consultation Bilateral leg lymphedema History of Present Illness The patient is a 69-year-old male morbidly obese with past medical history of chronic lymphedema, hypertension, hyperlipidemia, and gout presented to [facility] ED with complaint of cysts of the left lower leg. Patient reports on history of chronic lymphedema to his bilateral lower extremities for over the past 3 years. Patient was seen and evaluated in the ED, laboratory data shows WBC 15.2, platelets 289, sodium 147, potassium 3.0, BUN 12, creatinine 0.90, GFR 92, glucose 89, calcium 9.5, lactic acid 1.2, blood pressure 166/103, heart rate 75, temperature 98.5 F, O2 saturation 96% on room air. Tibia/fibula x-ray revealing mass of the amount of soft tissue consistent with corpulent body habitus. Please see medication orders section in the computer. On my assessment, patient denied chest pain, no headache, dizziness, diaphoresis, shortness of breaths, no nausea, vomiting, fever, no chills. Patient was admitted for further evaluation and medical management. Past Medical History See H&P Past Surgical History See H&P Family History: Alzheimer's disease G8 MOTHER Cerebrovascular accident (CVA) G8 MOTHER FH: cancer of GI tract G8 FATHER Allergies: Coded Allergies: NO KNOWN ALLERGIES (Unverified , 06/10/21) Home Meds Reported Medications Clonidine Hydrochloride (Clonidine Hcl) 0.2 Mg/24 Hr Dis, 0.2 MG PO Q6HPRN PRN for SBP>160 for 30 Days, MG 05/14/24 Potassium Chloride (POTASSIUM CHLORIDE CR) 10 Meq Tb, 1 TAB PO DAILY, #30 TAB 5 Refills 05/14/24 Metoprolol Tartrate (Metoprolol Tartrate) 50 Mg Tab, 50 MG PO BID for 30 Days, MG 05/14/24 Furosemide (Lasix) 40 Mg Tab, 40 MG PO, TAB 05/14/24 Allopurinol (ZYLOPRIM TABLET) 100 Mg Tb, 1 TAB PO DAILY, #30 TAB 5 Refills 10/18/22 Atorvastatin Calcium (ATORVASTATIN CALCIUM) 10 Mg Tab, 1 TAB PO DAILY 10/18/22 Current Medications Current Medications Medications (Trade) Dose Ordered Sig/Krista Route PRN Reason Start Time Stop Time Status Last Admin Lisinopril (Zestril Tablet) 5 mg DAILY PO 07/07/25 10:00 07/07/25 14:04 DC 07/07/25 10:34 Lisinopril (Zestril Tablet) 10 mg DAILY PO 07/08/25 10:00 07/08/25 08:39 Vital Signs Vital Signs Date Time Temp Pulse Resp B/P (MAP) Pulse Ox O2 Delivery O2 Flow Rate FiO2 07/08/25 09:00 97.8 70 18 172/86 (114) 95 97.8 07/07/25 20:00 Room Air* 0 21 Physical Exam Dermatological: Skin is dry with mild erythema and some maceration around the wound site No gross deformities noted Multiple superficial ulcerations with significant edema to bilateral lower extremity Vascular: Dorsalis pedis and posterior tibial pulses are 1+ bilaterally Capillary refill is under 2 seconds Skin temperature is warm bilaterally Neurologic: Protective sensation is absent on the plantar forefoot bilaterally Monofilament testing reveals decreased sensation in multiple plantar sites Musculoskeletal: Range of motion at the ankle and MTP joints is within normal limits. Strength is 5/5 in all tested muscle groups. Gait is antalgic due to offloading of the affected limb. Labs/Diagnostic Data Labs Test 07/08/25 07:12 07/07/25 06:26 07/06/25 13:17 Range/Units Sodium Level 147 H 136-145 mmol/L Potassium Level 4.1 3.5-5.1 mmol/L Chloride Level 108 H 98-107 mmol/L Carbon Dioxide Level 27 20-31 mmol/L Anion Gap 12 5-15 Blood Urea Nitrogen 17 9-23 mg/dL Creatinine 0.84 0.700-1.30 mg/dL Glomerular Filtration Rate Calc 94 >90 mL/min BUN/Creatinine Ratio 20.2 H 10.0-20.0 Serum Glucose 86 74-106 mg/dL Calcium Level 9.6 8.7-10.4 mg/dL Eosinophils (%) (Auto) 4.9 0.0-7.0 % Eosinophils # (Auto) 0.6 0-0.8 10 ^3/uL Basophils # (Auto) 0.1 0-0.2 10 ^3/uL Nucleated Red Blood Cells 0.0 % Total Bilirubin 1.3 H 0.2-1.0 mg/dL Aspartate Amino Transferase (AST) 25 13-40 U/L Alanine Aminotransferase (ALT) 23 7-40 U/L Alkaline Phosphatase 88 46-116 U/L Total Protein 7.3 5.7-8.2 g/dL Albumin 4.3 3.2-4.8 g/dL Lactic Acid Level 1.1 0.4-2.0 mmol/L Microbiology Date/Time Source Procedure Growth Status 07/06/25 18:20 Leg Gram Stain - Final Resulted 07/06/25 18:20 Leg Wound Culture Pending Resulted 07/05/25 19:15 Blood Blood Culture - Preliminary NO GROWTH AFTER 48 HOURS OF INCUBATION. Resulted Problems(with codes): (1) Cellulitis of right lower extremity (2) Bilateral lower leg cellulitis (3) Venous stasis dermatitis of both lower extremities (4) Hypokalemia (5) Generalized weakness (6) Leukocytosis, unspecified Plan/Recommendation ASSESSMENT: Patient is a 69 year old seen on the floor for a worsening ulcer PLAN: - The patients chart was reviewed, clinical findings were discussed with the patient, the etiologies of the conditions were discussed in detail, and a treatment plan was agreed to at this time, with both oral and written instructions provided. - reviewed advanced imaging - patient needs compression wrapping for the lymphedema - recommend continuing outpatient lymphedema pumps - already seeing wound care and has home health nurse - 2 weeks p.o. antibiotics for some of the surrounding erythema in the leg - follow up with his wound care doctor All questions were answered and concerns addressed to the patient's satisfaction. The patient was given the phone number to the clinic and was told how to make contact with the clinic should any concerns or questions arise. Patient understands that if any questions or concerns arise prior to the next appointment, we should be contacted immediately. FOLLOW-UP: Continue to follow while inpatient Plan discussed with: Patient Visit Coding Podiatry Date of Service if different f: Jul 08, 2025 Billing Provider: MILDRED ADKINS DPM Podiatry Common Visit Codes: CONSULT ONLY Podiatry Consult Codes: 80357-EM/OBS CONSLTJ NEW/EST HI 80 MILDRED ADKINS DPM Jul 08, 2025 09:59
[2025-07-08 10:16] LABS: Hematocrit 46.9 % (41.0-53.0); Hemoglobin 15.5 g/dL (13.5-17.5); Mean Corpuscular Hemoglobin 29.2 pg (28.0-32.0); Mean Corpuscular Volume 88.3 fL (80.0-100.0); Nucleated Red Blood Cells % 0.2 %
[2025-07-08 13:00] VITALS: BP 155/80; PULSE 66; RESP 20; TEMP 98; O2SAT 98
[2025-07-08] MEDS ORDERED: AUG875T PO (13:38)
[2025-07-08] MEDS ORDERED: DOXY100C79 PO (13:42)
--- NOTE | 2025-07-08 17:53 | DVHDSRES ---
Discharge Summary Date of Admission Resident Creating Document: MUMTAZ STONE RESIDENT Jul 05, 2025 at 22:15 Date of Discharge: Jul 08, 2025 Admitting Diagnosis left lower leg swelling and blister Labs/Diagnostic Data: Laboratory Results Test 07/08/25 09:42 07/08/25 07:12 07/07/25 06:26 07/06/25 13:17 White Blood Count 11.4 10^3/uL (4.4-10.8) Red Blood Count 5.30 10^6/uL (4.5-5.90) Hemoglobin 15.5 g/dL (13.5-17.5) Hematocrit 46.9 % (41.0-53.0) Mean Corpuscular Volume 88.3 fL (80.0-100.0) Mean Corpuscular Hemoglobin 29.2 pg (28.0-32.0) Mean Corpuscular Hemoglobin Concent 33.1 g/dL (32.0-36.0) Red Cell Distribution Width 14.6 % (11.8-14.3) Platelet Count 296 10^3/uL (140-450) Mean Platelet Volume 7.5 fL (6.9-10.8) Neutrophils (%) (Auto) 67.4 % (37.0-80.0) Lymphocytes (%) (Auto) 16.1 % (10.0-50.0) Monocytes (%) (Auto) 9.4 % (0.0-12.0) Eosinophils (%) (Auto) 6.0 % (0.0-7.0) Basophils (%) (Auto) 1.1 % (0.0-2.0) Neutrophils # (Auto) 7.7 10 ^3/uL (1.6-8.6) Lymphocytes # (Auto) 1.8 10 ^3/uL (0.4-5.4) Monocytes # (Auto) 1.1 10 ^3/uL (0-1.3) Eosinophils # (Auto) 0.7 10 ^3/uL (0-0.8) Basophils # (Auto) 0.1 10 ^3/uL (0-0.2) Nucleated Red Blood Cells 0.2 % Sodium Level 147 mmol/L (136-145) Potassium Level 4.1 mmol/L (3.5-5.1) Chloride Level 108 mmol/L (98-107) Carbon Dioxide Level 27 mmol/L (20-31) Anion Gap 12 (5-15) Blood Urea Nitrogen 17 mg/dL (9-23) Creatinine 0.84 mg/dL (0.700-1.30) Glomerular Filtration Rate Calc 94 mL/min (>90) BUN/Creatinine Ratio 20.2 (10.0-20.0) Serum Glucose 86 mg/dL (74-106) Calcium Level 9.6 mg/dL (8.7-10.4) Total Bilirubin 1.3 mg/dL (0.2-1.0) Aspartate Amino Transferase (AST) 25 U/L (13-40) Alanine Aminotransferase (ALT) 23 U/L (7-40) Alkaline Phosphatase 88 U/L (46-116) Total Protein 7.3 g/dL (5.7-8.2) Albumin 4.3 g/dL (3.2-4.8) Lactic Acid Level 1.1 mmol/L (0.4-2.0) Other Laboratory Tests 07/08/25 09:42 07/08/25 07:12 Brief Hx & Hospital Course: The patient is a 69-year-old male who presented to [facility] Emergency Department with a complaint of a left lower leg blister and a non- healing wound. He reported sudden swelling in the back of the leg yesterday morning without pain. While waiting in the emergency department around 1:15 p.m., the swollen area burst, releasing a large amount of clear fluid onto the floor without bleeding. He has a history of chronic bilateral lower limb lymphedema and recurrent cellulitis, with the last hospitalization in 2020. He was previously followed by a lymphedema clinic for about one year and used compression garments but stopped attending recently because they do not manage wounds. He is currently under wound care with Dr. Del Castillo and has been seen weekly for the past three to four weeks. A home health nurse was scheduled to start dressing changes three times a week. He denies pain, fever, or shortness of breath. The patients essential hypertension is managed with metoprolol 50 mg twice daily and lisinopril 10 mg daily. He was counseled on healthy lifestyle modifications for morbid obesity with a BMI of 54.6 kg/m. Hospital course Left lower extremity was noted to have copious clear drainage, and the wound was cleansed. Physical examination revealed bilateral lower extremity lymphedema and left lower extremity blisters without systemic symptoms. Diagnostic studies included a bilateral lower extremity venous duplex, which showed no evidence of femoropopliteal venous thrombosis, ruling out DVT. A bilateral lower extremity arterial duplex revealed no evidence of peripheral vascular insufficiency in either leg, with mild stenosis of 2049% in the right proximal superficial femoral artery. An X-ray of the left tibia and fibula showed no fracture, dislocation, periosteal reaction, or gas in the soft tissues. Gram stain of the wound showed rare white blood cells, rare gram-negative rods, and rare gram- positive cocci in pairs. The patient was started on intravenous ceftriaxone daily and clindamycin 600 mg every eight hours. Pain management included acetaminophen, morphine, and Clayton as needed. Supportive medications included Zofran for nausea, vitamin C, zinc sulfate, and potassium replacement for hypokalemia. Podiatry, wound care, and infectious disease consultations were requested. A wound culture collected on July 06, 2025, showed rare white blood cells, rare gram-negative rods, and rare gram-positive cocci in pairs on gram stain. The preliminary culture report indicated few growth of gram-negative organisms, and final identification is pending. The patient is on a cardiac diet and remains clinically stable. On discharge, the patient was prescribed oral Augmentin and doxycycline and instructed to follow up with his wound care doctor Dr. Del Castillo as scheduled. Examination General Appearance: Cooperative. Well developed. Well nourished. Head Exam: Normal inspection Neck Exam: Normal inspection. Non-tender. Normal alignment Pulmonary/Respiratory: Chest non-tender. Clear bilateral breath sounds, no crackles, no wheezing. Cardiovascular/Chest: Regular rate and rhythm. No murmurs. No JVD. Peripheral Pulses: 2+ Radial (R). 2+ Radial (L). Lower limb pulses are unobtainable due to lymphedema Abdominal Exam: Normal bowel sounds. Soft. normal abdomen, no visible veins, Nontender. No hepatospenomegaly. No masses Ankle Exam: Negative ankle edema Lower extremities: Bilateral lower extremities with nonpitting edema. Multiple wounds present; one large wound on left lower leg, drainage noted under wraps on right leg. Neuro/Mental Status: A&O x4. Coherent. Thoughts/Psych: Normal thought pattern. Appropriate mood and affect. Good judgement and insight Skin: Wounds wrapped, drainage noted; no acute signs of systemic infection documented. Operations or Procedures PATIENT: DESIREE KIRK ACCT: [id number] UNIT: [id number] : 1955 LOC: [facility] ROOM / BED: 0297 / A AGE / SEX: 69 / M ADM STATUS: ADM IN SERVICE 1608 ORDERING PHYSICIAN: MARIA DE JESUS STEVENS RESIDENT PROCEDURE(s): BLDVT - BiLat Lower DVT REASON: Rule out DVT, bilateral lwer limb swelling ORDER NUMBER(s): [id number], ACCESSION NUMBER(s): [id number] Bilateral lower extremity venous duplex Clinical History: Rule out DVT, bilateral lwer limb swelling Comparison: US BILAT LOWER DVT on DOS: 10/17/22, BI LOWER DVT on DOS: 06/10/21 Technique: Duplex Doppler evaluation of the deep venous systems of both lower extremities from the common femoral veins to the popliteal veins including color Doppler and spectral/pulsed waveform analysis was performed. Findings: RIGHT SIDE: The common femoral vein demonstrates appropriate compressibility and waveform variability. There is compressibility/patency of the great saphenous vein at the proximal thigh. The femoral vein demonstrates appropriate compressibility and waveform variability. The deep femoral vein demonstrates appropriate compressibility and waveform variability. The popliteal vein demonstrates appropriate compressibility and waveform variability. There is normal compressibility at the tibioperoneal trunk. LEFT SIDE: The common femoral vein demonstrates appropriate compressibility and waveform variability. There is compressibility/patency of the great saphenous vein at the proximal thigh. The femoral vein demonstrates appropriate compressibility and waveform variability. The deep femoral vein demonstrates appropriate compressibility and waveform variability. The popliteal vein demonstrates appropriate compressibility and waveform variability. There is normal compressibility at the tibioperoneal trunk. Impression: 1. No right or left femoropopliteal venous thrombosis. - PATIENT: DESIREE KIRK ACCT: [id number] UNIT: [id number] : 1955 LOC: [facility] ROOM / BED: [facility] / A AGE / SEX: 69 / M ADM STATUS: ADM IN SERVICE 1608 ORDERING PHYSICIAN: MARIA DE JESUS STEVENS RESIDENT PROCEDURE(s): BLEAD - BiLat Low Ext Art Duplex REASON: Non healing wounds bilateral lower limbs ORDER NUMBER(s): [id number], ACCESSION NUMBER(s): [id number] BILATERAL Lower Extremity Arterial Duplex Date: 07/06/2025 07:55 PM Clinical History: Non healing wounds bilateral lower limbs Comparison: BILAT LOW EXT ART DUPLEX on DOS: 06/11/21 Technique: Duplex Doppler evaluation including color Doppler and spectral/pulsed waveform analysis of the lower extremity arteries was performed. Finding: RIGHT: Peak systolic velocities are as follows: PIPING SUPERVISOR 163 cm/s triphasic waveform Deep femoral 75.1 cm/s biphasic waveform SFA proximal 133.7 cm/s triphasic waveform SFA mid-portion 111.7 cm/s triphasic waveform SFA distal 147.2 cm/s triphasic waveform Popliteal Proximal popliteal artery 118.9 cm/sec triphasic waveform Distal popliteal artery 117.5 cm/s biphasic waveform Right anterior tibial artery 77.8 cm/sec triphasic waveform Posterior tibial 65.6 cm/s triphasic waveform Dorsalis pedis 55.1 cm/s biphasic waveform The waveforms are biphasic and triphasic waveform LEFT: Peak systolic velocities are as follows: PIPING SUPERVISOR 136.6 cm/s triphasic waveform Deep femoral 101.5 cm/s biphasic waveform SFA proximal 167.7 cm/s triphasic waveform 20-49% stenosis SFA mid-portion 101.5 cm/s triphasic waveform SFA distal 149.8 cm/s triphasic waveform Popliteal Proximal popliteal artery: 121.5 cm/s biphasic or triphasic waveform Distal popliteal artery: 148.5 cm/sec triphasic waveform Posterior tibial 48.2 cm/s triphasic waveform Anterior tibial 109.1 cm/s triphasic waveform Dorsalis pedis 54.7 cm/s biphasic waveform The waveforms are biphasic and triphasic waveform. REFERENCE VALUES, [facility]) vascular Imaging Lab Criteria: Peak systolic velocity ranges (in cm/sec) are as follows: <150 cm/s - <20 % stenosis 150-200 cm/s - 20-49% stenosis 200-300 cm/s - 50-75% stenosis >300 cm/s -> 75% stenosis IMPRESSION: 1. There is no evidence for peripheral vascular insufficiency in the right lower extremity. Right proximal SFA 20-49% stenosis. 2. There is no evidence for peripheral vascular insufficiency in the left lower extremity. --- PATIENT: DESIREE KIRK ACCT: [id number] UNIT: [id number] : 1955 LOC: ER ROOM / BED: / AGE / SEX: 69 / M ADM STATUS: REG ER SERVICE 476 ORDERING PHYSICIAN: ZEFERINO GRANDA MD PROCEDURE(s): LTBFB - L TIB FIB XRAY REASON: wound / infection ORDER NUMBER(s): [id number], ACCESSION NUMBER(s): [id number] CLINICAL INDICATION: wound / infection TECHNIQUE: 8 radiographic views of the left tibia and fibula were obtained. Comparison: None FINDINGS/IMPRESSION: There is no fracture or dislocation. No periosteal reaction. No gas in the soft tissues. Mass of the amounts of soft tissue consistent with corpulent body habitus. If osteomyelitis is of concern recommend MRI. DATE: 07/08/25 PAGE 1 RUN TIME: 1025 [facility] [address] [address] Agustina Murdock M.D., Laboratory Healthcare Interpreter - PATIENT: DESIREE KIRK ACCT: [id number] LOC: [facility] U: [id number] AGE/SX: 69/M ROOM: [facility] RE07/05/[address]: MUMTAZ STONE : 1955 BED: A DIS: STATUS: ADM IN TLOC: - SPEC #: [id number] PAMELA: 07/06/25 STATUS: RES REQ #: [id number] RECD: 07/07/[address]: MARIA DE JESUS STEVENS SOURCE: LEG ENTR: 07/07/[address]: PURNIMA MORFIN MD SPDESC: JEREMY CARPIO MD, JOSHUA D DP MUMTAZ STONE ORDERED: KATIE w/ GINA COMMENTS: Has specimen been collected/obtained? Y - Procedure Result - Gram Stain Final RESULT Rare White Blood Cells Seen Rare Gram Negative Rods Rare Gram Positive Cocci in pairs Wound Culture Preliminary Report Few growth: Gram Negative Rods Identification and Susceptibilty test to follow. Still ruling out pathogens. [facility] [address] [address] Agustina Murdock M.D., Laboratory Healthcare Interpreter - PATIENT: DESIREE KIRK ACCT: [id number] LOC: [facility] U: [id number] AGE/SX: 69/M ROOM: [facility] RE07/05/[address]: MUMTAZ STONE RESIDENT : 1955 BED: A DIS: STATUS: ADM IN TLOC: - SPEC #: [id number] PAMELA: 07/05/25 STATUS: RES REQ #: [id number] RECD: 07/05/[address]: ZEFERINO GRANDA MD SOURCE: BLOOD ENTR: 07/05/[address]: SPDESSusan: ORDERED: BCULT - Procedure Result - Blood Culture Preliminary NO GROWTH AFTER 48 HOURS OF INCUBATION. NO GROWTH AFTER 48 HOURS OF INCUBATION. [facility] [address] [address] Agustina Murdock M.D., Laboratory Healthcare Interpreter - PATIENT: DESIREE KIRK ACCT: [id number] LOC: [facility] U: [id number] AGE/SX: 69/M ROOM: 0297 RE07/05/[address]: MUMTAZ STONE RESIDENT : 1955 BED: A DIS: STATUS: ADM IN TLOC: - SPEC #: [id number] PAMELA: 07/05/25 STATUS: RES ANA CRISTINA #: [id number] RECD: 07/05/[address] [facility] [address]: ZEFERINO GRANDA MD SOURCE: BLOOD ENTR: 07/05/[address] [facility] DR: SPDES: ORDERED: BCULT - Procedure Result - Blood Culture Preliminary NO GROWTH AFTER 48 HOURS OF INCUBATION. NO GROWTH AFTER 48 HOURS OF INCUBATION. Condition at Discharge: Stable Final Diagnosis/Problems List Bilateral Lower Leg Cellulitis Sepsis due to Cellulitits Discharge Disposition: Home with Health Services Discharge Instruct/Medications Diet: Regular Activity: No Restrictions, As Tolerated Follow Up/Referral: Follow up with wound care doctor as scheduled Medications: see prescription continue home medications Scheduled Allopurinol (Zyloprim Tablet), 1 TAB PO DAILY, (Reported) Atorvastatin Calcium (Atorvastatin Calcium), 1 TAB PO DAILY, (Reported) Doxycycline (Monohydrate) (Doxycycline), 100 MG PO BID Metoprolol Tartrate (Metoprolol Tartrate), 50 MG PO BID, (Reported) Potassium Chloride (Potassium Chloride Cr), 1 TAB PO DAILY, (Reported) Scheduled PRN Amoxicillin & Pot Clavulanate (Augmentin Tablet), 875 MG PO BID PRN Clonidine Hydrochloride (Clonidine Hcl), 0.2 MG PO Q6HPRN PRN for SBP>160, (Reported) Miscellaneous Medications Furosemide (Lasix), 40 MG PO, (Reported) Discharge Statement: "Patient was advised to return to the ER or call 911 if any headaches, dizziness, shortness of breath, chest pain, abdominal pain, bleeding, fevers, or worsening of medical condition. Patient was counseled about treatment plan, medications, possible side effects, patientverbalized understanding. All questions were answered to the best of my ability. This discharge took greater then 30 minutes in planning, reviewing documentation, counseling the patient, and discussing with other team members." ASSESSMENT ASSESSMENT Assessment Bilateral Lower Leg Cellulitis Sepsis due to Cellulitits Visit Coding STANDARD RES Billing Provider: JEREMY CARPIO MD Date of Service if different f: Jul 08, 2025 Common Visit Codes: 23185-SSQ/OBS DISCH DAY >30min MUMTAZ STONE RESIDENT Jul 08, 2025 17:53
== END 2025-07-08 15:15 | disposition home health service (06) | DRG 871 ==
LOC: ER 18:19 → OVERFLOW 22:15 → WEST WING 07-06 10:56
PROVIDERS: ADMIT Internal Medicine Geriatric Medicine; ATTEND Internal Medicine Geriatric Medicine
DX: A41.9 Sepsis, unspecified organism (principal); N17.0 Acute kidney failure with tubular necrosis; L03.115 Cellulitis of right lower limb; L03.116 Cellulitis of left lower limb; Z68.43 Body mass index [BMI] 50.0-59.9, adult; I10 Essential (primary) hypertension; E87.6 Hypokalemia; I87.2 Venous insufficiency (chronic) (peripheral); E78.5 Hyperlipidemia, unspecified; E66.01 Morbid (severe) obesity due to excess calories; M10.9 Gout, unspecified; Z82.3 Family history of stroke; Z82.49 Family history of ischemic heart disease and other diseases of the circulatory system; Z79.899 Other long term (current) drug therapy
CPT/HCPCS: 36415; 73590; 80048; 80053; 83605; 85025; 87040; 87077; 87081; 87186; 87205; 93925; 93970; 96365; 99291; G0378; J3490